=== PATIENT | male | born 1970 | race Caucasian/White ===

== ENCOUNTER → 2017-06-12 11:31 | Outpatient (CLI) | payer OTHER, SELFPAY ==
[2017-06-12 14:10] LABS: Absolute Lymphocyte Count 1.51 X10^3/ul (0.83-4.51); Absolute Neutrophil Count 7.9 X10^3/uL (2.0-7.7); Basophil# 0.02 X10^3/uL; Basophil% 0.2 % (0-1); Eosinophil# 0.04 X10^3/uL; Eosinophils% 0.4 % (0-5); Hematocrit 45.2 % (40-54); Hemoglobin 15.1 g/dl (13.0-16.5); Lymphocyte # 1.51 X10^3/ul (4.0); Lymphocyte % 14.4 % (19-41); Mean Corp Hgb Conc 33.4 g/gl (32-36); Mean Corpuscular Hgb 29.3 pg (27.0-32.0); Mean Corpuscular Volume 87.8 fL (80-94); Mean Platelet Vol. 10.4 fl (6.2-12.0); Monocyte# 0.97 X10^3/uL; Monocyte% 9.3 % (0-10); Neutrophil % 75.5 % (47-70); Platelet Count 179 K/mm3 (150-450); RBC Distribution Width CV 12.7 % (11.6-14.6); RBC Distribution Width SD 40.5 fl (35.1-43.9); Red Blood Count 5.15 M/mm3 (4.6-6.2); White Blood Count 10.5 K/mm3 (4.4-11.0)
[2017-06-12 14:11] LABS: POSITIVE COUNT NO; POSITIVE DIFFERENTIAL NO; POSITIVE MORPHOLOGY NO
[2017-06-12 14:30] LABS: BUN 15 mg/dL (7-18); Creatinine, Serum 0.99 mg/dL (0.70-1.30); Glucose 89 mg/dL (74-106)
[2017-06-12 14:31] LABS: ALB/GLOB Ratio 1.2 RATIO (0.9-2.4); AST(SGOT) 13 U/L (15-37); Alanine Aminotransfer ALT/SGPT 29 U/L (16-61); Alkaline Phosphatase 57 U/L (45-117); Anion Gap 7 (5-15); BUN/Creat Ratio 15.2 RATIO (10-20); Calcium,Total 8.8 mg/dL (8.5-10.1); Chloride 101 mmol/L (98-107); EST Glomerular Filtration Rate 86 mL/min (>60); Est Glom Filt Rate - Afr Amer 104 mL/min (>60); Globulin 3.4 g/dL (2.2-4.2); Potassium 4.2 mmol/L (3.5-5.1); Protein, Total 7.4 g/dL (6.4-8.2); Sodium Level 137 mmol/L (136-145)
== END ==
PROVIDERS: Family Provider Family Medicine; PCP Family Medicine; Visit Provider Family Medicine
DX: K57.92 Diverticulitis of intestine, part unspecified, without perforation or abscess without bleeding (principal)
CPT/HCPCS: 36415; 80053; 85025; 86140

== ENCOUNTER 2018-07-30 20:14 | Emergency (ER) | payer OTHER, SELFPAY ==
[2018-07-22 16:08] VITALS: BMI 30.7
[2018-07-30 20:15] VITALS: BP 148/91; PULSE 84; RESP 16; TEMP 36.6; O2SAT 97; BMI 29.8
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
[2018-07-30] MEDS: Ibuprofen 600 MG Tablet PO (22:13)
[2018-07-30 22:35] VITALS: BP 136/86; PULSE 81; RESP 16; O2SAT 98
== END 2018-07-30 22:35 | disposition home or self-care (01) ==
LOC: ED 22:21
PROVIDERS: Emergency Provider Emergency Medicine; Family Provider Family Medicine; PCP Family Medicine
DX: S20.211A Contusion of right front wall of thorax, initial encounter (principal); V89.2XXA Person injured in unspecified motor-vehicle accident, traffic, initial encounter; Y93.9 Activity, unspecified; Y92.9 Unspecified place or not applicable; I48.0 Paroxysmal atrial fibrillation; Z79.82 Long term (current) use of aspirin
CPT/HCPCS: 71101; 99282

== ENCOUNTER 2018-12-15 22:33 | Emergency (ER) | payer OTHER, SELFPAY ==
[2018-12-15 22:33] VITALS: BP 141/104; PULSE 142; PULSE 150; RESP 13; RESP 23; TEMP 36.3; O2SAT 98; O2SAT 99; BMI 31.4
--- NOTE | 2018-12-15 22:36 | ED.RN ---
CALLED FOR EKG PER RN REQUEST, PULLED OLD EKGS FOR
--- NOTE | 2018-12-15 22:50 | RAD_ITS ---
STUDY: X-RAY CHEST REASON FOR EXAM: Male, 48 years old. Palpitations. TECHNIQUE: Portable chest. COMPARISON: 01/15/2017. FINDINGS: The lungs are clear and expanded. There is no demonstrated pleural abnormality. Normal size heart. Normal mediastinum and annette. Normal visualized pulmonary arteries. Normal visualized aortic arch and descending thoracic aorta. Normal visualized thoracic spine. Normal visualized ribs, clavicles, and shoulders. There is no demonstrated abnormality of the visualized soft tissue structures of the upper abdomen. RAD/Chest 1 View (Portable) IMPRESSION: Normal x-ray examination of the chest. Electronically Signed: Sindi Aldridge MD at 23:42 EDT Tel , Service support ,
--- NOTE | 2018-12-15 22:51 | EKG12_ITS ---
Test Reason : Blood Pressure : / mmHG Vent. Rate : 150 BPM Atrial Rate : 156 BPM P-R Int : 000 ms QRS Dur : 090 ms QT Int : 306 ms P-R-T Axes : 000 041 113 degrees QTc Int : 483 ms Atrial fibrillation with rapid ventricular response with premature ventricular or aberrantly conducte d complexes Nonspecific ST and T wave abnormality Abnormal ECG Confirmed by ORI COHEN ([id number]), food expeditor GIANCARLO ROSE ([id number] on 12/21/2018 2:10:59 PM Referred By: YIMI Confirmed By:ORI COHEN
--- NOTE | 2018-12-15 22:53 | ED.DCSUM_ITS ---
History of Present Illness Chief Complaint: Palpitations Informant: Patient Onset: Today Context: Sudden Onset Timing: Continuous Narrative: Patient is a 48-year-old male with history of proximal atrial fibrillation pres enting with palpitations. Patient states he was seen on the couch when he suddenly felt a fluttering sensation in his chest. He states he sometimes gets it but will resolve spontaneously. Today it persisted so he came to the emergency room. Patient denies associated chest pain or shortness of breath. He states yesterday he was feeling under the weather like it might be coming down with something. He states he was having some diarrhea and myalgias. Patient is on metoprolol for rate control as well as aspirin. He is not on any anticoagulation. Denies any other complaints at this time the leg swelling, fever or chills. 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 Past Medical History - Allergies and Home Meds Allergies/Adverse Reactions: Allergies amoxicillin Adverse Reaction (Verified 12/15/18 22:36) Diarrhea Primary Care Physician: Umair Jensen MD [Primary Care Provider] - Past Medical History: - - Atrial fibrillation Surgical History: appendectomy, - - shoulder surgery, tonsillectemy, Smoking Status: Never smoker - Family History Maternal Family History: Family History (Last Updated 07/22/18 @ 16:19 by Miley Christian) Father Hypertension Bladder cancer Cancer Mother Heart disease Diabetes Family History: Reports: Heart Disease Paternal Family History: Family History (Last Updated 07/22/18 @ 16:19 by Miley Christian) Father Hypertension Bladder cancer Cancer Mother Heart disease Diabetes Family History: Reports: Hypertension Review of Systems All systems negative except as indicated Cardiovascular: Reports: Palpitations Physical Exam Vital Signs/Narrative: Vital Signs Temp Pulse Resp BP Pulse Ox 12/15/18 22:33 97.3 F L 142 H 13 141/104 H 98 Inital Vital Signs reviewed: Yes General: Well nourished, Well developed, No Acute Distress Head: Normocephalic, Atraumatic Eyes: Perrl, EOMI ENT: Moist mucous membranes, No rhinorrhea Neck: Supple, Nontender Cardiovascular: No murmurs, Irregular, Tachycardia Respiratory: No distress, CTA bilaterally, Chest nontender Abdomen: Soft, Nontender, Nondistended, Normal bowel sounds Back: Nontender, Normal Inspection Extremities: Nontender, No edema Skin: Normal color, No rash Neurological: Alert, Oriented x3, Cranial nerves II-XII grossly intact, Normal Strength, Normal Sensation Psychological: Normal affect, Normal Mood Diagnostic/Tx/Re-eval Chest X-Ray - ED: 1 View, Read by ED Physician, Read by Radiologist, No Acute Disease Clinical Impression(s) from Imaging Studies Chest X-Ray 12/15/18 22:50 IMPRESSION: Normal x-ray examination of the chest. Electronically Signed: Sindi Aldridge MD at 23:42 EDT Tel , Service support , Laboratory Data 12/15/18 12/15/18 22:40 22:40 WBC 5.8 RBC 5.40 Hgb 15.5 Hct 47.9 MCV 88.7 MCH 28.7 MCHC 32.4 RDW Std Deviation 39.2 RDW Coeff of Felicity 12.1 Plt Count 170 MPV 9.6 Immature Gran % (Auto) 0.200 Neut % (Auto) 48.7 Lymph % (Auto) 38.4 Grimes % (Auto) 10.0 Eos % (Auto) 2.2 Baso % (Auto) 0.5 Absolute Neuts (auto) 2.8 Absolute Lymphs (auto) 2.23 Nucleated RBC % 0 Sodium 139 Potassium 3.9 Chloride 104 Carbon Dioxide 30.0 Anion Gap 5 BUN 11 Creatinine 1.03 Estim Creat Clear Calc 94.17 Est GFR (MDRD) Af Amer 98 Est GFR (MDRD) Non-Af 81 BUN/Creatinine Ratio 10.7 Glucose 96 Calcium 8.6 Magnesium 2.1 Troponin I < 0.015 Diagnostic Data Chest X-Ray 12/15/18 22:50 IMPRESSION: Normal x-ray examination of the chest. Electronically Signed: Sindi Aldridge MD at 23:42 EDT Tel , Service support , - Rhythm Strip Rhythm Strip: A-fib - with RVR Rate: 143 Ectopy: PVC(s) - EKG Initial EKG Interpretation: Atrial Fibrillation, - - Fibrillation with RVR at a rate of 150 An run beat of V. tach is present versus aberrant conduction Normal ST segments Normal QRS and QT/QTc Normal axis Compared to prior EKG on 01/15/2017 patient also was in atrial fibrillation with RVR however aberrant conduction versus PVCs are not present Follow-up EKG Interpretation: Sinus Rhythm, - - Sinus bradycardia at a rate of [address] segments Resolution of atrial fibrillation compared to prior EKG - Medical Decision Making Evaluated for palpitations. He is found to be in atrial for ablation with RVR. He is having frequent runs of V. tach but it is not sustained. Patient is initially given 3 doses of 5 mg of metoprolol IV with no improvement of his rate. His blood pressure remained stable. He is given IV fluid bolus. He is then started on a bolus of diltiazem. Patient then spontaneously converted to sinus bradycardia. He has improvement of his symptoms. Patient's chest x-ray, troponin, electrolytes and other lab work is unremarkable. Patient is counseled on signs and symptoms requiring return to the emergency room. Patient verbalizes agreement and understand this plan. Patient discharged home in stable and improved condition. 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 We are not making any medication changes at this time. Return to the emergency room if your symptoms return or change.
[2018-12-15 23:00] VITALS: BP 148/98; PULSE 151
[2018-12-15 23:01] LABS: Absolute Lymphocyte Count 2.23 X10^3/uL (0.83-4.51); Absolute Neutrophil Count 2.8 X10^3/uL (2.0-7.7); Basophil# 0.03 X10^3/uL; Basophil% 0.5 % (0-1); Eosinophil# 0.13 X10^3/uL; Eosinophils% 2.2 % (0-5); Hematocrit 47.9 % (40-54); Hemoglobin 15.5 g/dL (13.0-16.5); Lymphocyte # 2.23 X10^3/ul (4.0); Lymphocyte % 38.4 % (19-41); Mean Corp Hgb Conc 32.4 g/dL (32-36); Mean Corpuscular Hgb 28.7 pg (27.0-32.0); Mean Corpuscular Volume 88.7 fL (80-94); Mean Platelet Vol. 9.6 fl (6.2-12.0); Monocyte# 0.58 X10^3/uL; NRBC Flagged by Analyzer 0 % (0-5); Neutrophil # 2.82 X10^3/uL (2.7-7.7); Neutrophil % 48.7 % (47-70); Platelet Count 170 K/mm3 (150-450); RBC Distribution Width CV 12.1 % (11.6-14.6); RBC Distribution Width SD 39.2 fl (35.1-43.9); White Blood Count 5.8 K/mm3 (4.4-11.0)
[2018-12-15] MEDS: Metoprolol Tartrate 5 MG/5 ML Vial IV ×3 (23:02→23:12)
[2018-12-15] MEDS: 0.9% Normal Saline 1,000 ML 1000 ML IV (23:04)
[2018-12-15 23:07] VITALS: BP 148/119; PULSE 142
[2018-12-15 23:12] VITALS: BP 153/106; PULSE 139
[2018-12-15 23:14] LABS: Anion Gap 5 (5-15); BUN 11 mg/dL (7-18); BUN/Creat Ratio 10.7 RATIO (10-20); Calcium,Total 8.6 mg/dL (8.5-10.1); Chloride 104 mmol/L (98-107); Creatinine, Serum 1.03 mg/dL (0.70-1.30); EST Glomerular Filtration Rate 81 mL/min (>60); Est Glom Filt Rate - Afr Amer 98 mL/min (>60); Estimated Creatinine Clearance 94.17 ml/min; Glucose 96 mg/dL (74-106); Magnesium 2.1 mg/dL (1.6-2.6); Potassium 3.9 mmol/L (3.5-5.1); Sodium Level 139 mmol/L (136-145)
[2018-12-16 00:09] VITALS: BP 109/78; PULSE 147; RESP 146; O2SAT 95
[2018-12-16] MEDS: dilTIAZem 25 MG/5 ML Vial 15 MG IV BOLUS (00:10)
--- NOTE | 2018-12-16 00:15 | HP.PCM_ITS ---
History of Present Illness Date of Admission: 12/16/18 Chief Complaint: Palpitations The patient is a 48 y/o F w/ PMHx: PAF, GERD, Hx Sinus Bradycardia who presents to the [facility] ED on 12/16/18 with history of Work-up in the ED included T 97.3, heart rate 150, BP 141/104, respiratory rate 23, 99% on room air, remarkable CBC, unremarkable BMP, troponin less than 0.015, magnesium 2.1, chest x-ray with no acute cardiopulmonary findings. In the ED patient administered normal saline, metoprolol IV regimen, Cardizem bolus 50 mg IV x1 and eventually transition to a Cardizem drip. Past Medical History Past Medical History (Chronic Problems): Chronic Problems (Last Updated 07/22/18 @ 16:18 by Miley Christian) Sinus bradycardia (Chronic) Paroxysmal atrial fibrillation (Chronic) GERD (gastroesophageal reflux disease) (Chronic) Medical History: Medical History (Last Updated 07/22/18 @ 16:18 by Miley Christian) Sinus bradycardia (Chronic) R00.1 Paroxysmal atrial fibrillation (Chronic) I48.0 GERD (gastroesophageal reflux disease) (Chronic) K21.9 Allergies amoxicillin Adverse Reaction (Verified 12/15/18 22:36) Diarrhea Home Medications: Ambulatory Orders Medication Instructions Recorded Aspirin 325 mg PO DAILY@0800 #30 tab 01/16/17 famotidine 40 mg tablet 40 mg PO QDAY tab 05/01/17 metoprolol tartrate 25 mg tablet 12.5 mg PO BID #90 tab 05/14/18 Surgical History: Surgical History (Last Updated 07/22/18 @ 16:18 by Miley Christian) History of shoulder surgery Z98.890 Right shoulder lymphatic cyst excision History of tonsillectomy Z90.89 Hx of appendectomy Z90.49 Surgical History: appendectomy, - - Shoulder surgery, T+A, Appendectomy. Psychiatric History: No pertinent psych hx Smoking Status: Never smoker Tobacco Use: Non-smoker Alcohol: Occasional Drugs: None - *Family History Maternal Family History: Family History (Last Updated 07/22/18 @ 16:19 by Miley Christian) Father Hypertension Bladder cancer Cancer Mother Heart disease Diabetes History Items: Heart Disease Paternal Family History: Family History (Last Updated 07/22/18 @ 16:19 by Miley Christian) Father Hypertension Bladder cancer Cancer Mother Heart disease Diabetes History Items: Hypertension Patient Problems: Active and Suspected Problems (Last Updated 07/22/18 @ 16:18 by Miley Christian) Atrial fibrillation with rapid ventricular response (Acute) - Physical Exam Vital Signs Temp Pulse Resp BP Pulse Ox 97.3 F L 147 H 146 H 153/106 H 95 12/15/18 22:33 12/16/18 00:09 12/16/18 00:09 12/15/18 23:12 12/16/18 00:09 Oxygen Delivery Method Room Air Weight: 231 lb 4.238 oz Body Mass Index (BMI) 31.4 Intake and Output for Last 24 Hours 12/14/18 12/15/18 12/16/18 23:59 23:59 23:59 Intake Total 1000 / 1000 Balance 1000 / 1000 Laboratory Tests Past 24 Hrs 12/15/18 12/15/18 22:40 22:40 WBC 5.8 RBC 5.40 Hgb 15.5 Hct 47.9 MCV 88.7 MCH 28.7 MCHC 32.4 RDW Std Deviation 39.2 RDW Coeff of Felicity 12.1 Plt Count 170 MPV 9.6 Immature Gran % (Auto) 0.200 Neut % (Auto) 48.7 Lymph % (Auto) 38.4 Payne % (Auto) 10.0 Eos % (Auto) 2.2 Baso % (Auto) 0.5 Absolute Neuts (auto) 2.8 Absolute Lymphs (auto) 2.23 Nucleated RBC % 0 Sodium 139 Potassium 3.9 Chloride 104 Carbon Dioxide 30.0 Anion Gap 5 BUN 11 Creatinine 1.03 Estim Creat Clear Calc 94.17 Est GFR (MDRD) Af Amer 98 Est GFR (MDRD) Non-Af 81 BUN/Creatinine Ratio 10.7 Glucose 96 Calcium 8.6 Magnesium 2.1 Troponin I < 0.015 Assessment/Plan All Active Problems (Last Updated 07/22/18 @ 16:18 by Miley Christian) Atrial fibrillation with rapid ventricular response (Acute)
--- NOTE | 2018-12-16 00:23 | EKG12_ITS ---
Test Reason : REPEAT Blood Pressure : / mmHG Vent. Rate : 056 BPM Atrial Rate : 056 BPM P-R Int : 160 ms QRS Dur : 090 ms QT Int : 388 ms P-R-T Axes : 054 041 044 degrees QTc Int : 374 ms Sinus bradycardia Otherwise normal ECG Confirmed by ORI COHEN ([id number]), health editor GIANCARLO ROSE ([id number]) on 12/21/2018 2:11:22 PM Referred By: IAN Confirmed By:ORI COHEN
[2018-12-16 00:34] VITALS: BP 113/79; PULSE 58; RESP 16; O2SAT 98
[2018-12-16 00:53] VITALS: BP 109/77; PULSE 55; RESP 16; O2SAT 96
[2018-12-16 01:02] VITALS: BP 105/70; PULSE 58; RESP 16; O2SAT 98
[2018-12-16 01:08] LABS: Amphetamine Urine VISTA NEGATIVE (<1000 ng/mL); Barbiturate Urine VISTA NEGATIVE (< 200 ng/mL); Benzodiazepine Urine VISTA NEGATIVE (< 200 ng/mL); Cocaine Urine VISTA NEGATIVE (< 300 ng/mL); Ecstacy Urine VISTA NEGATIVE (< 500 ng/mL); Methadone Urine VISTA NEGATIVE (< 300 ng/mL); PCP Urine VISTA NEGATIVE (< 25 ng/mL); THC Urine VISTA NEGATIVE (< 50 ng/mL); Vista UDS pH Range 5
[2018-12-16 01:18] VITALS: BP 116/82; PULSE 64; RESP 15; O2SAT 98
[2018-12-16 01:30] VITALS: BP 116/82; PULSE 59; RESP 14; O2SAT 95
== END 2018-12-16 01:31 | disposition home or self-care (01) ==
LOC: ED 23:08
PROVIDERS: Emergency Provider Emergency Medicine; Family Provider Family Medicine; PCP Family Medicine
DX: I48.91 Unspecified atrial fibrillation (principal)
CPT/HCPCS: 71045; 80048; 80307; 83735; 84484; 85025; 93005; 96361; 96374; 99284; J7030; A4216

== ENCOUNTER 2019-04-13 08:04 | Emergency (ER) | payer OTHER, SELFPAY ==
[2019-01-14 09:48] VITALS: BMI 30.4
[2019-04-13 08:04] VITALS: BP 157/84; PULSE 63; RESP 13; TEMP 36.9; O2SAT 97; BMI 30.9
--- NOTE | 2019-04-13 08:18 | ED.DCSUM_ITS ---
History of Present Illness Chief Complaint: Chest Pain Informant: Patient Onset: Today Narrative: Patient presents the emergency department for evaluation of chest pain. Patient has a history of paroxysmal atrial fibrillation is maintained on full-strength aspirin and diltiazem. He had a stress test in 2017 that was negative. 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 He states that yesterday he was in his normal state of health. He woke around 0430 hours with an intense midsternal chest pain. Nonradiating and no associated symptoms. He states he drank some water and took some Tums and laid back down. Around 6 he woke and it was better but he had an uncomfortable feeling more on the left side of his chest. He states he has had indigestion in the past and is typically felt in his upper abdomen. He states this felt different than that type of indigestion. Since arriving in the department he feels substantially better. Past Medical History - Allergies and Home Meds Allergies/Adverse Reactions: Allergies amoxicillin Adverse Reaction (Verified 04/13/19 08:10) Diarrhea Primary Care Physician: Umair Jensen MD [Primary Care Provider] - Surgical History: appendectomy, - - shoulder surgery, tonsillectemy, Smoking Status: Never smoker - Family History Maternal Family History: Family History (Last Reviewed 01/14/19 @ 14:43 by ROSALIND Hernandez) Father Hypertension Bladder cancer Cancer Mother Heart disease Diabetes Family History: Reports: Heart Disease Paternal Family History: Family History (Last Reviewed 01/14/19 @ 14:43 by ROSALIND Hernandez) Father Hypertension Bladder cancer Cancer Mother Heart disease Diabetes Family History: Reports: Hypertension Review of Systems General: Denies: Chills, Fever, Sweats Eyes: Denies: Visual changes - bilaterally, Diplopia ENT: Denies: Rhinorrhea, Sore throat Cardiovascular: Reports: Chest pain. Denies: Palpitations Respiratory: Denies: Dyspnea, Cough, Dyspnea on exertion Gastrointestinal: Denies: Abdominal pain, Nausea, Vomiting, Diarrhea, Melena, Hematochezia Genitourinary: Denies: Dysuria, Hematuria, Frequency Musculoskeletal: Denies: Back pain, Extremity Pain Skin: Denies: Rash, Wounds Neurological: Denies: Headache, Weakness, Numbness Physical Exam Vital Signs/Narrative: Vital Signs Temp Pulse Resp BP Pulse Ox 04/13/19 08:04 98.5 F 63 13 157/84 H 97 Inital Vital Signs reviewed: Yes General: Well nourished, Well developed, No Acute Distress Head: Normocephalic, Atraumatic Eyes: Perrl, EOMI ENT: Moist mucous membranes, No rhinorrhea Neck: Supple, Nontender Cardiovascular: Regular rate, Regular rhythm, No murmurs Respiratory: No distress, CTA bilaterally, Chest nontender Abdomen: Soft, Nontender, Nondistended, Normal bowel sounds Back: Nontender, Normal Inspection Extremities: Nontender, No edema Skin: Normal color, No rash Neurological: Alert, Oriented x3, Cranial nerves II-XII grossly intact, Normal Strength, Normal Sensation Psychological: Normal affect, Normal Mood Diagnostic/Tx/Re-eval - Rhythm Strip Rhythm Strip: Sinus Rhythm Rate: 62 - Medical Decision Making CBC BMP and d-dimer were negative. Chest x-ray shows a normal mediastinal silhouette. EKG shows no concerning features for ischemia. Initial heart enzymes are negative. Patient's heart score is 2. Therefore a be set of heart enzymes will be ordered. BP still active heart enzymes was also negative. Patient will be discharged home to follow-up with Dr. garcía if worsening or concerns ED Disposition - Plan for ED Patient: Disposition: Home or Assisted Living Diagnosis: Chest pain Instructions: CHEST PAIN, Uncertain Cause Referrals: Umair Jensen MD [Primary Care Provider] - As soon as possible
--- NOTE | 2019-04-13 08:33 | EKG12_ITS ---
Test Reason : Blood Pressure : / mmHG Vent. Rate : 062 BPM Atrial Rate : 062 BPM P-R Int : 142 ms QRS Dur : 096 ms QT Int : 398 ms P-R-T Axes : 053 050 044 degrees QTc Int : 403 ms Normal sinus rhythm Normal ECG Confirmed by ORI COHEN ([id number]), deputy editor in chief GIANCARLO ROSE ([id number]) on 04/15/2019 11:11:27 AM Referred By: GENNA Confirmed By:ORI COHEN
--- NOTE | 2019-04-13 08:33 | RAD_ITS ---
STUDY: X-RAY CHEST REASON FOR EXAM: Male, 48 years old. CHEST PAIN STARTED THIS MORNING TECHNIQUE: Single AP portable view of the chest. COMPARISON: Comparison is made with prior examination dated December 15, 2018. FINDINGS: EKG electrodes are seen. The lungs are clear and expanded. There is no demonstrated pleural abnormality. Normal size heart. Normal mediastinum and annette. Normal visualized pulmonary arteries. Normal visualized aortic arch and descending thoracic aorta. Normal visualized thoracic spine. Normal visualized ribs, clavicles, and shoulders. There is no demonstrated abnormality of the visualized soft tissue structures of the upper abdomen. RAD/Chest 1 View (Portable) IMPRESSION: Normal x-ray examination of the chest. Electronically Signed: Rubén Hoyos, at 8:50 EST , Service support ,
[2019-04-13 08:58] LABS: Absolute Lymphocyte Count 1.37 X10^3/uL (0.83-4.51); Absolute Neutrophil Count 2.7 X10^3/uL (2.0-7.7); Basophil# 0.03 X10^3/uL; Basophil% 0.7 % (0-1); Eosinophil# 0.12 X10^3/uL; Eosinophils% 2.6 % (0-5); Hematocrit 47.9 % (40-54); Hemoglobin 15.5 g/dL (13.0-16.5); Lymphocyte # 1.37 X10^3/ul (4.0); Lymphocyte % 29.8 % (19-41); Mean Corp Hgb Conc 32.4 g/dL (32-36); Mean Corpuscular Hgb 28.1 pg (27.0-32.0); Mean Corpuscular Volume 86.9 fL (80-94); Mean Platelet Vol. 9.7 fl (6.2-12.0); Monocyte# 0.39 X10^3/uL; Monocyte% 8.5 % (0-10); NRBC Flagged by Analyzer 0 % (0-5); Neutrophil # 2.68 X10^3/uL (2.7-7.7); Neutrophil % 58.4 % (47-70); Platelet Count 159 K/mm3 (150-450); RBC Distribution Width CV 12.3 % (11.6-14.6); RBC Distribution Width SD 38.8 fl (35.1-43.9); Red Blood Count 5.51 M/mm3 (4.6-6.2); White Blood Count 4.6 K/mm3 (4.4-11.0)
[2019-04-13 09:14] LABS: Anion Gap 5 (5-15); BUN 14 mg/dL (7-18); BUN/Creat Ratio 14.1 RATIO (10-20); Calcium,Total 8.6 mg/dL (8.5-10.1); Chloride 106 mmol/L (98-107); Creatinine, Serum 0.99 mg/dL (0.70-1.30); EST Glomerular Filtration Rate 85 mL/min (>60); Est Glom Filt Rate - Afr Amer 102 mL/min (>60); Estimated Creatinine Clearance 97.98 ml/min; Glucose 100 mg/dL (74-106); Magnesium 2.4 mg/dL (1.6-2.6); Sodium Level 140 mmol/L (136-145)
[2019-04-13 09:15] LABS: D-Dimer Quantitative (DVT/PE) < 0.27 FEU/ug/m (0.27-0.49)
[2019-04-13 09:36] VITALS: BP 139/91; PULSE 60; RESP 18; O2SAT 100
[2019-04-13 11:00] VITALS: BP 139/91; PULSE 58; RESP 16; O2SAT 100
[2019-04-13 12:00] VITALS: PULSE 58; RESP 14; O2SAT 97
[2019-04-13 12:49] VITALS: BP 145/86; PULSE 59; RESP 18; O2SAT 98
--- NOTE | 2019-04-13 12:49 | ED.RN ---
REVIEWED D/C INSTRUCTIONS, FOLLOW UP CARE, AND S/S THAT WOULD WARRANT A RETURN TO THE ED WITH PT. PT VERBALIZED AN UNDERSTANDING AND DENIES FURTHER QUESTIONS FOR THIS RN. PT SKIN P/W/D, RESP EVEN AND UNLABORED, PT A&O X 3, NO DISTRESS NOTED. PT AMBULATED OUT OF ED, GAIT STEADY.
== END 2019-04-13 12:50 | disposition home or self-care (01) ==
PROVIDERS: Emergency Provider Emergency Medicine; Family Provider Family Medicine; PCP Family Medicine
DX: R07.2 Precordial pain (principal); I48.0 Paroxysmal atrial fibrillation; Z79.899 Other long term (current) drug therapy; Z88.0 Allergy status to penicillin
CPT/HCPCS: 71045; 80048; 83735; 84484; 85025; 85379; 93005; 99284; A4216

== ENCOUNTER 2021-05-03 08:16 | Outpatient (CLI) | payer OTHER, SELFPAY ==
[2021-05-03 10:12] LABS: Hematocrit 45.5 % (40-54); Hemoglobin 15.1 g/dL (13.0-16.5)
[2021-05-03 10:53] LABS: Anion Gap 6 (5-15); BUN 16 mg/dL (7-18); BUN/Creat Ratio 17.1 RATIO (10-20); Calcium,Total 8.7 mg/dL (8.5-10.1); Chloride 103 mmol/L (98-107); Cholesterol 197 mg/dL (200); Creatinine, Serum 0.94 mg/dL (0.70-1.30); EST Glomerular Filtration Rate 90 mL/min (>60); Est Glom Filt Rate - Afr Amer 109 mL/min (>60); Glucose 89 mg/dL (74-106); High Density Lipoprotein 65 mg/dL; PSA,Total - Annual Screen 0.29 ng/mL (0.00-4.00); Sodium Level 135 mmol/L (136-145); Triglycerides 99 mg/dL; Very Low Density Lipoprotein 20 mg/dL (5-40)
== END 2021-05-03 23:59 | disposition short-term general hospital (02) ==
LOC: MFPLAB 08:21
PROVIDERS: PCP Family Medicine; Referring Provider Family Medicine; Visit Provider Family Medicine
DX: Z00.00 Encounter for general adult medical examination without abnormal findings (principal); I48.0 Paroxysmal atrial fibrillation; Z12.5 Encounter for screening for malignant neoplasm of prostate
CPT/HCPCS: 36415; 80048; 80061; 84153; 85014; 85018; G0103

== ENCOUNTER 2021-05-21 10:36 | Outpatient (CLI) | payer OTHER, SELFPAY | END 2021-05-21 23:59 | disposition home or self-care (01) | LOC: LABSPEC 05-22 10:47 | PROVIDERS: PCP Family Medicine; Referring Provider Family Medicine; Visit Provider Family Medicine | DX: R09.89 Other specified symptoms and signs involving the circulatory and respiratory systems (principal) | CPT/HCPCS: 87635; U0003; U0005 ==

== ENCOUNTER → 2022-07-09 | Outpatient (CLI) | payer OTHER, SELFPAY ==
[2022-07-09 10:00] LABS: Absolute Neutrophil Count 2.6 X10^3/uL (2.0-7.7); Basophil# 0.03 X10^3/uL; Basophil% 0.7 % (0-1); Eosinophil# 0.11 X10^3/uL; Eosinophils% 2.4 % (0-5); Hematocrit 47.1 % (40-54); Hemoglobin 15.2 g/dL (13.0-16.5); Mean Corp Hgb Conc 32.3 g/dL (32-36); Mean Corpuscular Hgb 28.6 pg (27.0-32.0); Mean Corpuscular Volume 88.5 fL (80-94); Mean Platelet Vol. 9.9 fl (6.2-12.0); Monocyte# 0.36 X10^3/uL; NRBC Flagged by Analyzer 0 % (0-5); Neutrophil # 2.61 X10^3/uL (2.7-7.7); Neutrophil % 57.7 % (47-70); Platelet Count 200 K/mm3 (150-450); RBC Distribution Width CV 12.6 % (11.6-14.6); RBC Distribution Width SD 40.7 fl (35.1-43.9); Red Blood Count 5.32 M/mm3 (4.6-6.2); White Blood Count 4.5 K/mm3 (4.4-11.0)
[2022-07-09 10:27] LABS: ALB/GLOB Ratio 1.2 RATIO (0.9-2.4); AST(SGOT) 18 U/L (15-37); Alanine Aminotransfer ALT/SGPT 34 U/L (16-61); Albumin, Serum 3.7 g/dL (3.2-5.0); Alkaline Phosphatase 63 U/L (45-117); Anion Gap 3 (5-15); BUN 15 mg/dL (7-18); BUN/Creat Ratio 15.4 RATIO (10-20); Chloride 106 mmol/L (98-107); Cholesterol 177 mg/dL (200); Creatinine, Serum 0.97 mg/dL (0.70-1.30); EST Glomerular Filtration Rate 86 mL/min (>60); Est Glom Filt Rate - Afr Amer 104 mL/min (>60); Glucose 103 mg/dL (74-106); High Density Lipoprotein 64 mg/dL; Potassium 4.1 mmol/L (3.5-5.1); Protein, Total 6.7 g/dL (6.4-8.2); Sodium Level 139 mmol/L (136-145); Thyroid Stim Hormone (TSH) 1.45 uIU/mL (0.358-3.74); Triglycerides 101 mg/dL; Very Low Density Lipoprotein 20 mg/dL (5-40)
== END | disposition home or self-care (01) ==
LOC: MFPLAB 08:13
PROVIDERS: PCP Family Medicine; Referring Provider Family Medicine; Visit Provider Family Medicine
DX: Z00.00 Encounter for general adult medical examination without abnormal findings (principal)
CPT/HCPCS: 36415; 80053; 80061; 84443; 85025

== ENCOUNTER → 2023-05-27 | Outpatient (CLI) | payer OTHER, SELFPAY ==
[2023-05-27 18:03] LABS: Absolute Lymphocyte Count 1.71 X10^3/uL (0.83-4.51); Basophil# 0.04 X10^3/uL; Basophil% 0.7 % (0-1); Eosinophil# 0.13 X10^3/uL; Eosinophils% 2.4 % (0-5); Hematocrit 46.9 % (40-54); Hemoglobin 15.2 g/dL (13.0-16.5); Lymphocyte # 1.71 X10^3/ul (0.83-4.51); Lymphocyte % 31.7 % (19-41); Mean Corp Hgb Conc 32.4 g/dL (32-36); Mean Corpuscular Hgb 28.2 pg (27.0-32.0); Mean Platelet Vol. 10.3 fl (6.2-12.0); Monocyte% 9.3 % (0-10); NRBC Flagged by Analyzer 0 % (0-5); Neutrophil # 3.01 X10^3/uL (2.7-7.7); Neutrophil % 55.7 % (47-70); Platelet Count 196 K/mm3 (150-450); RBC Distribution Width CV 12.6 % (11.6-14.6); RBC Distribution Width SD 39.8 fl (35.1-43.9); Red Blood Count 5.39 M/mm3 (4.6-6.2); White Blood Count 5.4 K/mm3 (4.4-11.0)
[2023-05-27 18:29] LABS: ALB/GLOB Ratio 1.2 RATIO (0.9-2.4); AST(SGOT) 18 U/L (15-37); Alanine Aminotransfer ALT/SGPT 33 U/L (16-61); Albumin, Serum 3.9 g/dL (3.2-5.0); Alkaline Phosphatase 63 U/L (45-117); Anion Gap 8 (5-15); BUN 16 mg/dL (7-18); BUN/Creat Ratio 14.2 RATIO (10-20); Calcium,Total 8.7 mg/dL (8.5-10.1); Chloride 107 mmol/L (98-107); Creatinine, Serum 1.13 mg/dL (0.70-1.30); EST Glomerular Filtration Rate 72 mL/min (>60); Est Glom Filt Rate - Afr Amer 87 mL/min (>60); Globulin 3.2 g/dL (2.2-4.2); Glucose 89 mg/dL (74-106); Potassium 3.9 mmol/L (3.5-5.1); Protein, Total 7.1 g/dL (6.4-8.2); Sodium Level 141 mmol/L (136-145)
--- OUTSIDE RECORDS SUMMARY | 2023-05-27 20:20 | XMS RPT_ITS | CCD ---
Author Name Unknown Address [address] [facility] [address] [place] [id number] Organization [facility] Care Team Providers Care Pulp And Paper Tester Name Role Phone ISRALE SAEZ Attending Unavailable LEONEL JENSEN Primary Care Unavailable VIANNEY NAVARRO Referring Unavailable LEONEL JENSEN Referring Unavailable LEONEL JENSEN Primary Care Unavailable VIANNEY NAVARRO Attending Unavailable Leonel Jensen MD Primary Care Provider Allergies Allergy Classification Reported Allergen(s) Allergy Type Date of Onset Reaction(s) Facility (2 sources) Amoxicillin; Translations: [AMOXICILLIN] Drug Allergy 01-29-2005 Diarrhea [facility] Repository Medications Completed/Discontinued Medications Medication Drug Class(es) Dates Sig (Normalized) Sig (Original) aspirin 325 mg delayed release oral tablet (1 source) Platelet Aggregation Inhibitor, Nonsteroidal Anti-inflammatory Drug take 1 tablet by mouth once daily aspirin, enteric coated (ASPIRIN, ENTERIC COATED) 325 mg EC tablet Take 325 mg by mouth once daily. 0 Active Problems Active Problems Problem Classification Problem Date Documented Date Episodic/Chronic Esophageal disorders (1 source) Gastroesophageal reflux disease; Translations: [Gastro-esophageal reflux disease without esophagitis] Onset: 05-30-2005 08-23-2008 Chronic Other screening for suspected conditions (not mental disorders or infectious disease) (4 sources) Encounter for screening for malignant neoplasm of colon; Translations: [Patient encounter status] Onset: 03-12-2022 03-11-2022 Episodic Residual codes; unclassified (2 sources) Family history of diabetes mellitus; Translations: [Family history of diabetes mellitus] Onset: 08-23-2008 03-11-2022 Episodic Past or Other Problems Problem Classification Problem Date Documented Date Episodic/Chronic Appendicitis and other appendiceal conditions (1 source) Appendicitis; Translations: [Unspecified appendicitis] Onset: 08-23-2008 08-23-2008 Episodic Other non-traumatic joint disorders (1 source) Shoulder joint pain; Translations: [Pain in unspecified shoulder] Onset: 01-14-2008 08-23-2008 Episodic Residual codes; unclassified (1 source) Family history of diabetes mellitus; Translations: [Family history of diabetes mellitus] Onset: 08-23-2008 Episodic Residual codes; unclassified (1 source) Family history of ischemic heart disease and other diseases of the circulatory system; Translations: [Family history of other cardiovascular diseases] Onset: 08-23-2008 08-23-2008 Episodic Results Test Name Value Interpretation Reference Range Facil ity Vital Signs Date Time Vital Sign Value Performing Clinician Faci lity 03-12-2022 11:06-0500 Diastolic blood pressure 78 mm[Hg] Israel Saez MD Work Phone: [facility] 03-12-2022 11:06-0500 Heart rate 73 /min Israel Saez MD Work Phone: [facility] 03-12-2022 11:06-0500 Respiratory rate 16 /min Israel Saez MD Work Phone: [facility] 03-12-2022 11:06-0500 SaO2% (BldA) [Mass fraction] 100 % Israel Saez MD Work Phone: [facility] 03-12-2022 11:06-0500 Systolic blood pressure 137 mm[Hg] Israel Saez MD Work Phone: [facility] 03-12-2022 09:46-0500 Body temperature 97.7 [degF] Israel Saez MD Work Phone: [facility] Encounters Encounter Date Encounter Type Care Provider Facility Start: 03-12-2022 End: 03-12-2022 ambulatory ISRAEL SAEZ Facility:[facility] Start: 03-12-2022 End: 03-12-2022 Subsequent hospital visit by physician Israel Saez MD Work Phone: Ambulatory Surgery Procedures Date Procedure Procedure Detail Performing Clinician Start: 03-12-2022 Colonoscopy flx dx w /collj spec when pfrmd Vianney Navarro PA-C Work Phone: Start: 03-12-2022 Colonoscopy Israel johnson MD Work Phone: Start: 08-23-2008 Lipid 1996 panel - S mina or Plasma Israel Saez MD Work Phone: Plan of Treatment Date Care Activity Detail Author Start: 03-12-2032 Colonoscopy Colonoscopy [facility] Start: 03-12-2032 Colorectal Cancer Screening Colorectal Cancer Screening [facility] Start: 12-06-2022 Covid-19 Vaccine () Covid-19 Vaccine () [facility] Start: 12-06-2022 Influenza vaccination Influenza Vacc ine (#1) [facility] Start: 04-07-2022 Depression Assessment Depression Ass essment [facility] Start: 04-04-2022 Shingrix Vaccine (2 of 2) Shingrix V accine (2 of 2) [facility] Start: 01-29-2017 Urine microalbumin profile DTa P,Tdap,Td Vaccine (2 - Td or Tdap) [facility] Start: 2013 Cologuard (FIT-DNA) Cologuard (FIT-D NA) [facility] Start: [address] Colonography [facility] Start: 2013 Diabetes Screening Diabetes Screenin g [facility] Start: 2013 Fecal Occult Blood Fecal Occult Bloo d [facility] Start: 2013 Sigmoidoscopy Sigmoidoscopy [facility] Start: 08-23-2013 Lipid 1996 panel - S mina or Plasma Lipid Screening [facility] Start: 1986 Hepatitis [facility] Start: 1986 HIV Screening HIV Screening [facility] Start: 1968 Hepatitis B Vaccine (1 of 3 - 3-dose series) Hepatitis B Vaccine (1 of 3 - 3-dose series) [facility] Immunizations Immunization Date Immunization Notes Care Provider Fa cility 02-07-2022 influenza virus vaccine, unspecified formulation Israel Saez MD Work Phone: [facility] 01-30-2019 influenza, injectabl e, quadrivalent, contains preservative Israel Saez MD Work Phone: [facility] 01-17-2018 influenza, injectabl e, quadrivalent, contains preservative Israel Saez MD Work Phone: [facility] 01-27-2016 influenza, injectabl e, quadrivalent, contains preservative Israel Saez MD Work Phone: [facility] 02-18-2015 influenza, injectabl e, quadrivalent, contains preservative Israel Saez MD Work Phone: [facility] 02-24-2014 influenza, seasonal, injectable Israel Saez MD Work Phone: [facility] 02-20-2013 influenza virus vaccine, unspecified formulation Israel Saez MD Work Phone: [facility] Work Phone: 01-15-2012 influenza virus vaccine, unspecified formulation Israel Saez MD Work Phone: [facility] Work Phone: 01-23-2011 influenza virus vaccine, unspecified formulation Israel Saez MD Work Phone: [facility] 01-29-2007 tetanus toxoid, redu rocky diphtheria toxoid, and acellular pertussis vaccine, adsorbed Israel Saez MD Work Phone: [facility] Work Phone: Payers Date Payer Category Payer Private Health Insurance [id number] 2020 Private Health Insurance [employer] [id number] 2020-Present [phone] [facility] [id number] [place] [address] Open Access [id number] Social History Date Type Detail Facility [facility] Start: 03-12-2022 Alcohol intake Current drinke r of alcohol (finding) [facility] Start: 03-12-2022 History of Social function [facility] Start: 03-12-2022 Tobacco use panel [facility] Start: 08-23-2008 Alcohol Comment occasional/social [facility] Start: 1970 Sex Assigned At Not on file [facility] Nurse Note 03-12-2022 Emmie Yousif RN - 03/12/2022 10:36 AM EST Note Date & Type Note Facility 03-12-2022 Nurse Note Patient arrived laying on left side. States that he is not in any pain at this time. Patient passing gas. Patient's abdomen appears to soft and nondistended at this time. documented in this encounter [facility] History and physical note 03-12-2022 Israel Saez MD - 03/12/2022 9:45 AM ESTIsrael Saez MD - 03/12/2022 9:45 AM EST Note Date & Type Note Facility 03-12-2022 History and physi noah note UPDATED PROCEDURAL SEDATION HISTORY AND PHYSICAL EXAMINATION SERVICE DATE: 03/12/2022 SERVICE TIME: 9:53 AM PHYSICAL EXAM MUST BE COMPLETED ON ADMISSION PROCEDURE: Procedure Indications: The History and Physical (completed in the past 30 days) has been reviewed and the patient has been examined. The contents accurately reflect the patient's condition with the following additions or revisions since the H&P was completed. ASA Class: ASA Class:: Patient with severe systemic disease Examination indicates no changes. AIRWAY: Airway Visualization of Uvula: Yes Mouth opening greater than 2 fingerbreadths: Yes Neck Full Range of Motion: Yes LUNGS: Lungs clear to auscultation CARDIAC: Regular rhythm,Regular rate Provisional Diagnosis/Treatment Plan: screening for colon cancer - colonoscopy SEDATION GOAL: Moderate This H&P can be found in the attached. SIGNATURE: Israel Saez MD PATIENT NAME: Andrés Steve DATE: March 12, 2022 TIME: 9:53 AM Source Note - Israel Saez MD - 03/12/2022 9:45 AM EST Images from the original note were not included. HISTORY AND PHYSICAL Andrés Steve 1970 REFERRING PHYSICIAN: Leonel Jensen MD CHIEF COMPLAINT: Consult (Colonoscopy) HPI: The patient is a 51 year old male referred for endoscopy. Andrés notes no colon complaints currently. He does report a past history of diverticulitis episodes which were diagnosed clinically and resolved with oral antibiotics-states happened twice over the last 6 years. Patient denies any change in bowel habits, weight changes, blood in stools, black tarry stools or abdominal pain. Denies family history of colon cancer. The patient notes no upper GI complaints. Andrés has not undergone prior endoscopy. Patient's past medical history is significant for atrial fibrillation, GERD which is controlled with famotidine with no breakthrough symptoms per patient, and allergic rhinitis. Patient follows with Dr. Leonel Jensen in primary care for his chronic medical conditions, last office visit note reviewed. He follows with Dr. Gould in cardiology. Patient denies chest pain, shortness of breath or recent hospitalizations. Denies problems with sedation in the past. PAST MEDICAL HISTORY PAST MEDICAL HISTORY Diagnosis Date A-fib (HCC) Allergic rhinitis Esophageal reflux 04/07/2001 PAST SURGICAL HISTORY PAST SURGICAL HISTORY Procedure Laterality Date APPENDECTOMY 2005 Dr. Saez (laparoscopic) EXTRACTION, ERUPTED TOOTH OR EXPOSED ROOT (ELEVATION AND/OR FORCEPS REMOVAL) teens wisdom teeth PAST SURGICAL HISTORY OF 01/09 rt supraclavicluar mass removed (cystic hygroma) PAST SURGICAL HISTORY OF teens cysto/ureteroscopy -- with stone, PAST SURGICAL HISTORY OF endo with polypectomy TONSILLECTOMY PRIMARY/SECONDARY <AGE 10 childhood CURRENT MEDICATIONS Current Outpatient Medications Medication Sig famotidine (ACID RESISTOR INSPECTOR) 10 mg tablet Take 1 tablet by mouth once daily. Increases to 2 daily as needed (Patient taking differently: Take 20 mg by mouth once daily. Increases to 2 daily as needed) dilTIAZem (CARDIZEM) 60 mg tablet Take 60 mg by mouth twice daily. aspirin, enteric coated (ASPIRIN, ENTERIC COATED) 325 mg EC tablet Take 325 mg by mouth once daily. cetirizine (ZYRTEC) 10 mg tablet Take 1 tablet by mouth once daily. (Patient not taking: Reported on 12/03/2021) No current facility-administered medications for this visit. ALLERGIES: Amoxicillin PERSONAL HISTORY: SOCIAL HISTORY Social History Tobacco Use Smoking status: Never Smokeless tobacco: Never Substance Use Topics Alcohol use: Yes Comment: occasional/social Drug use: No FAMILY HISTORY: FAMILY HISTORY FAMILY HISTORY Problem Relation Age of Onset Diabetes Mother type 1, with renal/heart complication GI Mother gallbladder Hypertension Mother Hypertension Father Cancer Father bladder (age 62) -- heavy smoker Coronary Artery Disease Mother REVIEW OF SYMPTOMS: The review of systems data was entered by the nurse and reviewed by me Nursing Notes: Kaylynn Randolph 12/03/2021 8:29 AM Signed REVIEW OF SYSTEMS: General: The patient denies fatigue, denies weight loss, denies weight gain, denies feeling hot, and denies feelings of cold. Eyes: The patient denies glaucoma, denies eye injury/surgery, wears glasses or contacts. Ear/Nose/Throat: The patient NOTES allergies, denies hayfever, denies ear infections, and denies bloody noses. Cardiovascular: The patient denies chest pain, denies heart disease, NOTES A Fib, denies high blood pressure,denies cardiac stent, denies prior heart attack, denies irregular heart beat, denies high cholesterol, denies poor circulation, denies heart failure, other cardiac issues, denies claudication, denies cold feet, denies peripheral arterial stent. Respiratory: The patient denies tuberculosis, denies pneumonia, denies frequent cough, denies pulmonary embolism, denies shortness of breath, and denies coughing up blood. Gastrointestinal: The patient denies difficulty swallowing, NOTES acid reflux, denies ulcers, denies vomiting, denies jaundice/hepatitis, denies gallbladder problems, denies black or tarry stools, denies hemorrhoids, denies bleeding from rectum, denies diverticulitis, denies constipation, denies diarrhea, denies loss of stool control, and denies hernias. Kidney/Bladder: The patient denies kidney stones, denies urine infections, and denies bloody urine. Skin: The patient denies a history of skin cancer, denies bleeding/changing moles, and denies a history of skin rash. Neurologic: The patient denies a history of epilepsy/convulsions, denies headaches, denies head/spinal injuries, and denies stroke/TIA. Psychiatric: The patient denies psychiatric medications, denies depression, and denies voices, denies substance abuse. Endocrine: The patient denies thyroid disorders, denies diabetes, and denies hormonal problems. Hematologic: The patient denies a history of bruising, NOTES bleeding, and denies anemia, denies blood clots. Infections: The patient NOTES a history of measles and mumps, denies rheumatic fever, and denies sexually transmitted diseases. Musculoskeletal: The patient denies back pain/injury, denies back problems, denies sciatica, denies knee/foot trouble, denies arthritis, or denies gout. When was patient's last Mammogram screening? N/A Last Colonoscopy: None Kaylynn Randolph I have confirmed and edited as necessary, the PFSH and ROS obtained by others. Vianney Navarro PA-C PHYSICAL EXAMINATION: General: The patient is 51 year old male, well nourished, well hydrated in no acute distress. The patient is oriented to time, place, and person. VITALS: Blood pressure 149/87, pulse 74, temperature 36.5 C (97.7 F), height 182.9 cm (6'), weight 103.4 kg (228 lb), SpO2 96 %. Body mass index is 30.92 kg/m . HEENT: Normal cephalic, ataumatic, pupils are equally round, sclera are anicteric, mucous membranes are moist, oropharynx is clear. Neck has no masses, asymmetry or lymphadenopathy. Respiratory: Clear to auscultation and percussion. Normal respiratory excursion and pattern. Cardiac: Examination is regular rate and rhythm. Normal S1/S2 Abdominal exam: Soft, nontender, with no palpable masses. No hepatosplenomegaly. No palpable hernias. Extremities: no clubbing, cyanosis or edema. No adenopathy. LABORATORY VALUES: As Noted RADIOLOGIC STUDIES: As Noted Assessment IMPRESSION: encounter for screening colonoscopy PLAN: I have reviewed my findings with the surgeon. Will plan for lower endoscopy. We discussed the risks and benefits of the planned endoscopy. I have informed the patient that complications can occur including failure to complete the endoscopy and perforation. The patient had the opportunity to ask questions concerning the planned endoscopy. My staff has also explained the procedure to the patient in understandable terms and has given the patient printed material concerning the procedure. The patient freely consents to surgery. The patient was offered a surgery/procedure at a [facility] facility. I have counseled the patient regarding the risk of exposure to and/or potential harm posed by the COVID-19 virus with having a surgery/procedure at this time versus the risk of delaying the surgery/procedure. It is not possible to know either the risk of delaying the surgery or procedure or chance of getting an infection with perfect accuracy, but a joint decision was made between the patient and myself to proceed at this time with endoscopy. I plan to use Golytely bowel preparation Diagnoses: (Z12.11) Encounter for screening for malignant neoplasm of colon (primary encounter diagnosis) (Z87.19) History of colonic diverticulitis Consultation requested by Dr. Jensen for an opinion regarding screening colonoscopy. My final recommendations will be communicated back to the requesting physician by way of shared Medical record or letter to requesting physician via US mail. Vianney Navarro PA-C Images from the original note were not included. HISTORY AND PHYSICAL Andrés [employer] 1970 REFERRING PHYSICIAN: Leonel Jensen MD CHIEF COMPLAINT: Consult (Colonoscopy) HPI: The patient is a 51 year old male referred for endoscopy. Andrés notes no colon complaints currently. He does report a past history of diverticulitis episodes which were diagnosed clinically and resolved with oral antibiotics-states happened twice over the last 6 years. Patient denies any change in bowel habits, weight changes, blood in stools, black tarry stools or abdominal pain. Denies family history of colon cancer. The patient notes no upper GI complaints. Andrés has not undergone prior endoscopy. Patient's past medical history is significant for atrial fibrillation, GERD which is controlled with famotidine with no breakthrough symptoms per patient, and allergic rhinitis. Patient follows with Dr. Leonel Jensen in primary care for his chronic medical conditions, last office visit note reviewed. He follows with Dr. Gould in cardiology. Patient denies chest pain, shortness of breath or recent hospitalizations. Denies problems with sedation in the past. PAST MEDICAL HISTORY PAST MEDICAL HISTORY Diagnosis Date A-fib (HCC) Allergic rhinitis Esophageal reflux 04/07/2001 PAST SURGICAL HISTORY PAST SURGICAL HISTORY Procedure Laterality Date APPENDECTOMY 2005 Dr. Saez (laparoscopic) EXTRACTION, ERUPTED TOOTH OR EXPOSED ROOT (ELEVATION AND/OR FORCEPS REMOVAL) teens wisdom teeth PAST SURGICAL HISTORY OF 01/09 rt supraclavicluar mass removed (cystic hygroma) PAST SURGICAL HISTORY OF teens cysto/ureteroscopy -- with stone, PAST SURGICAL HISTORY OF endo with polypectomy TONSILLECTOMY PRIMARY/SECONDARY <AGE 10 childhood CURRENT MEDICATIONS Current Outpatient Medications Medication Sig famotidine (ACID RESISTOR INSPECTOR) 10 mg tablet Take 1 tablet by mouth once daily. Increases to 2 daily as needed (Patient taking differently: Take 20 mg by mouth once daily. Increases to 2 daily as needed) dilTIAZem (CARDIZEM) 60 mg tablet Take 60 mg by mouth twice daily. aspirin, enteric coated (ASPIRIN, ENTERIC COATED) 325 mg EC tablet Take 325 mg by mouth once daily. cetirizine (ZYRTEC) 10 mg tablet Take 1 tablet by mouth once daily. (Patient not taking: Reported on 12/03/2021) No current facility-administered medications for this visit. ALLERGIES: Amoxicillin PERSONAL HISTORY: SOCIAL HISTORY Social History Tobacco Use Smoking status: Never Smokeless tobacco: Never Substance Use Topics Alcohol use: Yes Comment: occasional/social Drug use: No FAMILY HISTORY: FAMILY HISTORY FAMILY HISTORY Problem Relation Age of Onset Diabetes Mother type 1, with renal/heart complication GI Mother gallbladder Hypertension Mother Hypertension Father Cancer Father bladder (age 62) -- heavy smoker Coronary Artery Disease Mother REVIEW OF SYMPTOMS: The review of systems data was entered by the nurse and reviewed by pr Nursing Notes: Kaylynn Agustín 12/03/2021 8:29 AM Signed REVIEW OF SYSTEMS: General: The patient denies fatigue, denies weight loss, denies weight gain, denies feeling hot, and denies feelings of cold. Eyes: The patient denies glaucoma, denies eye injury/surgery, wears glasses or contacts. Ear/Nose/Throat: The patient NOTES allergies, denies hayfever, denies ear infections, and denies bloody noses. Cardiovascular: The patient denies chest pain, denies heart disease, NOTES A Fib, denies high blood pressure,denies cardiac stent, denies prior heart attack, denies irregular heart beat, denies high cholesterol, denies poor circulation, denies heart failure, other cardiac issues, denies claudication, denies cold feet, denies peripheral arterial stent. Respiratory: The patient denies tuberculosis, denies pneumonia, denies frequent cough, denies pulmonary embolism, denies shortness of breath, and denies coughing up blood. Gastrointestinal: The patient denies difficulty swallowing, NOTES acid reflux, denies ulcers, denies vomiting, denies jaundice/hepatitis, denies gallbladder problems, denies black or tarry stools, denies hemorrhoids, denies bleeding from rectum, denies diverticulitis, denies constipation, denies diarrhea, denies loss of stool control, and denies hernias. Kidney/Bladder: The patient denies kidney stones, denies urine infections, and denies bloody urine. Skin: The patient denies a history of skin cancer, denies bleeding/changing moles, and denies a history of skin rash. Neurologic: The patient denies a history of epilepsy/convulsions, denies headaches, denies head/spinal injuries, and denies stroke/TIA. Psychiatric: The patient denies psychiatric medications, denies depression, and denies voices, denies substance abuse. Endocrine: The patient denies thyroid disorders, denies diabetes, and denies hormonal problems. Hematologic: The patient denies a history of bruising, NOTES bleeding, and denies anemia, denies blood clots. Infections: The patient NOTES a history of measles and mumps, denies rheumatic fever, and denies sexually transmitted diseases. Musculoskeletal: The patient denies back pain/injury, denies back problems, denies sciatica, denies knee/foot trouble, denies arthritis, or denies gout. When was patient's last Mammogram screening? N/A Last Colonoscopy: None Kaylynn Randolph I have confirmed and edited as necessary, the PFSH and ROS obtained by others. Vianney Navarro PA-C PHYSICAL EXAMINATION: General: The patient is 51 year old male, well nourished, well hydrated in no acute distress. The patient is oriented to time, place, and person. VITALS: Blood pressure 149/87, pulse 74, temperature 36.5 C (97.7 F), height 182.9 cm (6'), weight 103.4 kg (228 lb), SpO2 96 %. Body mass index is 30.92 kg/m . HEENT: Normal cephalic, ataumatic, pupils are equally round, sclera are anicteric, mucous membranes are moist, oropharynx is clear. Neck has no masses, asymmetry or lymphadenopathy. Respiratory: Clear to auscultation and percussion. Normal respiratory excursion and pattern. Cardiac: Examination is regular rate and rhythm. Normal S1/S2 Abdominal exam: Soft, nontender, with no palpable masses. No hepatosplenomegaly. No palpable hernias. Extremities: no clubbing, cyanosis or edema. No adenopathy. LABORATORY VALUES: As Noted RADIOLOGIC STUDIES: As Noted Assessment IMPRESSION: encounter for screening colonoscopy PLAN: I have reviewed my findings with the surgeon. Will plan for lower endoscopy. We discussed the risks and benefits of the planned endoscopy. I have informed the patient that complications can occur including failure to complete the endoscopy and perforation. The patient had the opportunity to ask questions concerning the planned endoscopy. My staff has also explained the procedure to the patient in understandable terms and has given the patient printed material concerning the procedure. The patient freely consents to surgery. The patient was offered a surgery/procedure at a [facility] facility. I have counseled the patient regarding the risk of exposure to and/or potential harm posed by the COVID-19 virus with having a surgery/procedure at this time versus the risk of delaying the surgery/procedure. It is not possible to know either the risk of delaying the surgery or procedure or chance of getting an infection with perfect accuracy, but a joint decision was made between the patient and myself to proceed at this time with endoscopy. I plan to use Golytely bowel preparation Diagnoses: (Z12.11) Encounter for screening for malignant neoplasm of colon (primary encounter diagnosis) (Z87.19) History of colonic diverticulitis Consultation requested by Dr. Jensen for an opinion regarding screening colonoscopy. My final recommendations will be communicated back to the requesting physician by way of shared Medical record or letter to requesting physician via US mail. Vianney Navarro PA-C documented in this encounter [facility] Progress note 12-03-2021 Note Date & Type Note Facility 12-03-2021 Note HNO ID: [id number] Author: Vianney Navarro PA-C Service: ? Author Type: Physician [employer]ason Supervisor Type: Progress Notes Filed: 12/03/2021 9:07 AM Note Text: HISTORY AND PHYSICAL Andrés Steve 1970 REFERRING PHYSICIAN: Leonel Jensen MD CHIEF COMPLAINT: Consult (Colonoscopy) HPI: The patient is a 51 year old male referred for endoscopy. Andrés notes no colon complaints currently. He does report a past history of diverticulitis episodes which were diagnosed clinically and resolved with oral antibiotics-states happened twice over the last 6 years. Patient denies any change in bowel habits, weight changes, blood in stools, black tarry stools or abdominal pain. Denies family history of colon cancer. The patient notes no upper GI complaints. Andrés has not undergone prior endoscopy. Patient's past medical history is significant for atrial fibrillation, GERD which is controlled with famotidine with no breakthrough symptoms per patient, and allergic rhinitis. Patient follows with Dr. Leonel Jensen in primary care for his chronic medical conditions, last office visit note reviewed. He follows with Dr. Gould in cardiology. Patient denies chest pain, shortness of breath or recent hospitalizations. Denies problems with sedation in the past. PAST MEDICAL HISTORY Diagnosis Date A-fib (HCC) Allergic rhinitis Esophageal reflux 04/07/2001 PAST SURGICAL HISTORY Procedure Laterality Date APPENDECTOMY 2005 Dr. Saez (laparoscopic) EXTRACTION, ERUPTED TOOTH OR EXPOSED ROOT (ELEVATION AND/OR FORCEPS REMOVAL) teens wisdom teeth PAST SURGICAL HISTORY OF 01/09 rt supraclavicluar mass removed (cystic hygroma) PAST SURGICAL HISTORY OF teens cysto/ureteroscopy -- with stone, PAST SURGICAL HISTORY OF endo with polypectomy TONSILLECTOMY PRIMARY/SECONDARY Current Outpatient Medications Medication Sig famotidine (ACID RESISTOR INSPECTOR) 10 mg tablet Take 1 tablet by mouth once daily. Increases to 2 daily as needed (Patient taking differently: Take 20 mg by mouth once daily. Increases to 2 daily as needed) dilTIAZem (CARDIZEM) 60 mg tablet Take 60 mg by mouth twice daily. aspirin, enteric coated (ASPIRIN, ENTERIC COATED) 325 mg EC tablet Take 325 mg by mouth once daily. cetirizine (ZYRTEC) 10 mg tablet Take 1 tablet by mouth once daily. (Patient not taking: Reported on 12/03/2021) No current facility-administered medications for this visit. ALLERGIES: Amoxicillin PERSONAL HISTORY: Social History Tobacco Use Smoking status: Never Smokeless tobacco: Never Substance Use Topics Alcohol use: Yes Comment: occasional/social Drug use: No FAMILY HISTORY: FAMILY HISTORY Problem Relation Age of Onset Diabetes Mother type 1, with renal/heart complication GI Mother gallbladder Hypertension Mother Hypertension Father Cancer Father bladder (age 62) -- heavy smoker Coronary Artery Disease Mother REVIEW OF SYMPTOMS: The review of systems data was entered by the nurse and reviewed by me Nursing Notes: Kaylynn Randolph 12/03/2021 8:29 AM Signed REVIEW OF SYSTEMS: General: The patient denies fatigue, denies weight loss, denies weight gain, denies feeling hot, and denies feelings of cold. Eyes: The patient denies glaucoma, denies eye injury/surgery, wears glasses or contacts. Ear/Nose/Throat: The patient NOTES allergies, denies hayfever, denies ear infections, and denies bloody noses. Cardiovascular: The patient denies chest pain, denies heart disease, NOTES A Fib, denies high blood pressure,denies cardiac stent, denies prior heart attack, denies irregular heart beat, denies high cholesterol, denies poor circulation, denies heart failure, other cardiac issues, denies claudication, denies cold feet, denies peripheral arterial stent. Respiratory: The patient denies tuberculosis, denies pneumonia, denies frequent cough, denies pulmonary embolism, denies shortness of breath, and denies coughing up blood. Gastrointestinal: The patient denies difficulty swallowing, NOTES acid reflux, denies ulcers, denies vomiting, denies jaundice/hepatitis, denies gallbladder problems, denies black or tarry stools, denies hemorrhoids, denies bleeding from rectum, denies diverticulitis, denies constipation, denies diarrhea, denies loss of stool control, and denies hernias. Kidney/Bladder: The patient denies kidney stones, denies urine infections, and denies bloody urine. Skin: The patient denies a history of skin cancer, denies bleeding/changing moles, and denies a history of skin rash. Neurologic: The patient denies a history of epilepsy/convulsions, denies headaches, denies head/spinal injuries, and denies stroke/TIA. Psychiatric: The patient denies psychiatric medications, denies depression, and denies voices, denies substance abuse. Endocrine: The patient denies thyroid disorders, denies diabetes, and denies hormonal problems. Hematologic: The patient denies a hist (more content not included)... [facility] History of Past illness Narrative 08-23-2008 Note Date & Type Note Facility documented as of this encounter (statuses as of 02/09/2023) [facility] Evaluation note Note Date & Type Note Facility documented in this encounter [facility] Reason for referral (narrative) Outpatient Procedure (Routine) - Closed Note Date & Type Note Facility Referral ID Status Reason Start Date Expiration Date V isits Requested Visits Authorized [id number] Closed Auto-Generate d Referral 12/03/2021 12/03/2022 1 1 [facility] Reason for visit Narrative Outpatient Procedure (Routine) - Closed Note Date & Type Note Facility Referral ID Status Reason Start Date Expiration Date V isits Requested Visits Authorized [id number] Closed Auto-Generate d Referral 12/03/2021 12/03/2022 1 1 [facility] Summary Purpose Family History No Family History Records Found Advance Directives No Advanced Directives Records Found Medications Administered Section Inactive Administered Medications - up to 3 most recent administrations Medication Order MAR Action Action Date Dose Rate Site diphenhydrAMINE 12.5-50 mg injection (BENADRYL) 12.5-50 mg, INTRAVENOUS, DIRECTED, Starting on Fri03/12/22 at 1000, Until Fri03/12/22 at 1359, DOSING DIRECTED BY PHYSICIAN FOR PROCEDURAL SEDATION ONLY, Intraprocedure Given by LIP 03/12/2022 10:15 AM EST 50 mg fentaNYL 50 mcg/mL 25-100 mcg injection (SUBLIMAZE) 25-100 mcg, INTRAVENOUS, DIRECTED, Starting on Fri03/12/22 at 1000, Until Fri03/12/22 at 1359, DOSING DIRECTED BY PHYSICIAN FOR PROCEDURAL SEDATION ONLY, Intraprocedure Given by LIP 03/12/2022 10:13 AM EST 50 mcg Additional Source Comments (unrecognized sect ion and content) No Status Records Found INFORMATION SOURCE (unrecogn ized section and content) Source Comments (unrecognize d section and content) In the event this informatio n is protected by the Federal Confidentiality of Alcohol and Drug Abuse Patient Records regulations: The Federal rules restrict any use of the information to criminally investigate or prosecute any alcohol or drug abuse patient.[facility] Care Teams (unrecognized sec tion and content) FOR RECORDS PERTAINING TO PATIENTS WHO ARE OR HAVE BEEN ENROLLED IN A CHEMICAL DEPENDENCY/SUBSTANCEABUSE PROGRAM, SOME INFORMATION MAY BE OMITTED. This clinical summary was aggregated from multiple sources. Caution should be exercised in using it in the provision of clinical care. This summary normalizes information from multiple sources, and as a consequence, information in this document may materially change the coding, format and clinical context of patient data. In addition, data may be omitted in some cases. CLINICAL DECISIONS SHOULD BE BASED ON THE PRIMARY CLINICAL RECORDS. [facility]. provides no warranty or guarantee of the accuracy or completeness of information in this document.
== END | disposition home or self-care (01) ==
LOC: MFPLAB 15:21
PROVIDERS: PCP Family Medicine; Visit Provider Family Medicine
DX: I48.0 Paroxysmal atrial fibrillation (principal)
CPT/HCPCS: 36415; 80053; 85025

== ENCOUNTER → 2024-02-24 | Outpatient (CLI) | payer OTHER, SELFPAY ==
[2024-02-24 18:00] LABS: ALB/GLOB Ratio 1.2 RATIO (0.9-2.4); AST(SGOT) 28 U/L (15-37); Alanine Aminotransfer ALT/SGPT 33 U/L (16-61); Albumin, Serum 3.7 g/dL (3.2-5.0); Alkaline Phosphatase 71 U/L (45-117); Anion Gap 5 (5-15); BUN 18 mg/dL (7-18); BUN/Creat Ratio 19.6 RATIO (10-20); Calcium,Total 8.9 mg/dL (8.5-10.1); Chloride 106 mmol/L (98-107); Creatinine, Serum 0.92 mg/dL (0.70-1.30); EST Glomerular Filtration Rate 91 mL/min (>60); Est Glom Filt Rate - Afr Amer 110 mL/min (>60); Globulin 3.2 g/dL (2.2-4.2); Glucose 100 mg/dL (74-106); Potassium 4.1 mmol/L (3.5-5.1); Protein, Total 6.9 g/dL (6.4-8.2); Sodium Level 139 mmol/L (136-145)
== END | disposition home or self-care (01) ==
LOC: MFPLAB 17:00
PROVIDERS: PCP Family Medicine; Visit Provider Family Medicine
DX: I10 Essential (primary) hypertension (principal)
CPT/HCPCS: 36415; 80053

== ENCOUNTER → 2025-03-11 | Outpatient (CLI) | payer OTHER, SELFPAY ==
--- OUTSIDE RECORDS SUMMARY | 2025-03-11 16:49 | XMS RPT_ITS | CCD ---
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 calculated GFR & GFRAA in patients over 70 years has not been determined. Clinical correlation is essential. Serum or plasma urea nitroge n measurement (mass/volume)Ordered By: Leonel Jensen on 05-27-2023 Urea nitrogen [Mass/Vol] 16 mg/dL 7-18 [facility] Thin prep Papanicolaou smear with manual screeningOrdered By: Leonel Jensen on 05-27-2023 Thin prep Papanicolaou smear with manual screening 3.9 g/dL 3.2-5.0 [facility] Thin prep Papanicolaou smear with manual screening 18 U/L 15-37 [facility] Thin prep Papanicolaou smear with manual screening 8 5-15 [facility] 12 Lead EKG performed by [facility] on 05-07-2023 12 Lead EKG performed by [facility] [address] [place] [address] 12 Lead EKG performed by [facility] 05/07/23828 MR#: [id number] Acct: [id number] Name: SATHYA SANABRIA Rep #: [id number] : 1970 52 From: Jason Foster MD Attending Dr: Dr. Jason Foster MD Status: DE P AMB Ordering Dr: Jason Foster MD Date: 05/07/23 Location: [facility] Sex: M C Admitted: [facility]/12 Lead EKG performed by [facility] ECG Report Interpretation --Sinus Rhythm - frequent ectopic ventricular beat s # VECs = 2BORDERLINE RHYTHMElectronically signed on 05/27/2023 at 10:24 by Stephon Hutchins Software Version [id number] 05/27/23 1026 Date Jason Foster MD CC: Dr. Leonel Jensen MD Date Dictated: 05/07/23828 Date Transcribed: 05/07/23828 Video Engineer: Signed Normal [facility] Cardiology Visit Reporton Cardiology Visit Report [facility] [address] [place] [address] OFFICE VISIT Date of Service: 05/07/23 MR#: [id number] Acct: [id number] Name: SATHYA SANABRIA Rep #: [id number] : 1970 Provider: Dr. Jason agarwal MD Age/Sex: 52/M Location: [facility] Status: Signed HPI HPI History of Present Illness Details: This is a 52-year-old white male who presents today for outpatient cardiovascular follow-up with a history of underlying paroxysmal atrial fibrillation and sinus bradycardia. Patient reports he has been doing very well in his home environment he is aerobically active and has had no recurrence of his paroxysmal atrial fibrillation since January 2017. The patient feels that this is probably related to the fact that he was sick with nausea and vomiting at the time. He was evaluated back in January 2017 with a echo that showed normal LV function and EF of 60% no significant valvular heart disease. There was only mild aortic valve thickening. The patient also had a stress test done in 2017 which was unremarkable. The patient denies any PND orthopnea denies any lower extremity edema he denies any chest pain he really is asymptomatic. He also denies any history of hypertension although there is some mention of it in his office visits when he was here in June 2022 his blood pressure is 158/80 today is 151/86 he reports that this is unusual for him and has not been elevated in his primary care physician's office. The patient is on a very small dose of diltiazem his heart rate is 60 bpm with occasional PVCs in the office today. There are no significant ST or T wave changes there is some poor R wave progression. Intake Vital Signs 06/05/22 13:32 05/07/23 14:55 Height 6 ft 6 ft Weight: 225 lb 5 oz 227 lb BMI 30.5 30.7 BP 158/80 H 157/86 H Blood Pressure Location Lt brachial Lt brachial Position Sitting Sitting Respiration 16 18 Pulse 60 59 L Pulse Source Auscultation Monitor Intake Visit Reasons: 1 Y FU (PREV PFM) Program Director/Music Director Required: No Accompanied by: Self Is patient in pain?: No Allergies amoxicillin Adverse Reaction (Verified 06/05/22 13:33) Diarrhea Medications aspirin 325 mg tablet 325 mg PO DAILY@0800 #30 tabs 01/16/17 [Rx Confirmed 05/07/23] famotidine 40 mg tablet 20 mg PO QDAY 01/14/19 [History Confirmed 05/07/23] fluticasone propionate 50 mcg/actuation nasal spray,suspension (Flonase Allergy Relief) 1 spray intranasal DAILY PRN 04/28/20 [History Confirmed 05/07/23] diltiazem HCl 60 mg capsule,extended release 12 hr 60 mg PO BID #180 caps 07/12/22 [Rx Confirmed 05/07/23] Ejection fraction %: 60 to 64 PFS Medical History Essential hypertension GERD (gastroesophageal reflux disease) Paroxysmal atrial fibrillation Retinal tear of both eyes Sinus bradycardia Surgical History History of bilateral cataract extraction History of shoulder surgery History of tonsillectomy Hx of appendectomy Family History Father Hypertension Bladder cancer Cancer lymphoma Mother Heart disease Diabetes Social History Smoking Status: Never smoker alcohol intake: current alcohol intake frequency: a few times a month Alcohol type: beer and wine substance use type: does not use caffeine: Yes Type: coffee Number of servings: 2 what type of physical activity do you participate in: none seatbelt use: always do you feel safe at home: Yes ROS Const Const: Negative for fatigue or weakness ENT ENT: Negative for dizziness or balance problems Cardio Chest Pain: No Palpitations: No Edema: None Muscle aches with walking: None Resp Respiratory: Negative for SOB with activity, SOB at rest or SOB orthopnea SOB lying down GI GI: Negative nausea, vomiting or heartburn Musc Musc: Negative for muscle weakness or balance problems Neuro Neuro: Negative for dizziness, lightheadedness, near syncope, syncope or weakness Endo Endo: Negative for fatigue Cardiology Exam Const Appearance: cooperative, comfortable and no acute distress Head Head: normal to inspection Eyes General: appearance normal, both eyes and all related structures Neck Neck: no JVD Carotids: Negative bruit Chest Chest inspection: normal inspection of the chest Auscultation: Bilateral: Clear to Auscultation Cardio Rate: regular rate Rhythm: regular rhythm Heart sounds: S1 normal and S2 normal; Negative rub, gallop or murmur GI GI: normal to inspection and bowel sounds present Neuro General: patient oriented x3 Skin Skin: no rashes or lesions noted Extremities Lower Extrem (more content not included)... Normal [facility] Absolute lymphocyte countOrd ered By: Dr. Jensen on 07-09-2022 Lymphocytes Auto (Unsp spec) [#/Vol] 1.40 10*3/uL 0.83-4.51 [facility] Basophil percentageOrdered B y: Dr. Jensen on 07-09-2022 Basophils/100 WBC (Bld) 0.7 % 0-1 [facility] Bilirubin [Mass/Vol] 0.40 mg/dL 0.20-1.00 [facility] Comment on above: For patients on eltr ombopag therapy, use of Dimension Irene TBIL is not recommended. Chloride [Moles/Vol] 106 mmol/L 98-107 [facility] Cholesterol [Mass/Vol] 177 mg/dL <200 [facility] Comment on above: <200 mg/dL Desirable 200-240 mg/dL Borderline >240 mg/dL High Risk Eosinophils/100 WBC (Bld) 2.4 % 0-5 [facility] Glucose [Mass/Vol] 103 mg/dL 74-106 [facility] Comment on above: Fasting Glucose resu lt from 100 to 125 mg/dL suggests IMPAIRED HOMEOSTASIS per A.D.A. criteria. Neutrophils (Bld) [#/Vol] 2.6 10*3/uL 2.0-7.7 [facility] Neutrophils/100 WBC (Bld) 57.7 % 47-70 [facility] Potassium [Moles/Vol] 4.1 mmol/L 3.5-5.1 [facility] Protein [Mass/Vol] 6.7 g/dL 6.4-8.2 [facility] Sodium [Moles/Vol] 139 mmol/L 136-145 [facility] Triglyceride [Mass/Vol] 101 mg/dL <199 [facility] Comment on above: The drugs N-Acetylcy steine and Metamizole may falsely depress this assay.Serum Triglycerides Reference Interval Normal <150 mg/dL Borderline high 150 - 199 mg/dL High 200 - 499 mg/dL Very High > or = 500 mg/dL WBC (Bld) [#/Vol] 4.5 10*3/uL 4.4-11.0 [facility] Blood erythrocytes count (nu mber/volume)Ordered By: Dr. Jensen on 07-09-2022 RBC (Bld) [#/Vol] 5.32 10*6/uL 4.6-6.2 [facility] Blood hemoglobin measurement (mass/volume)Ordered By: Dr. Jensen on 07-09-2022 Hemoglobin (Bld) [Mass/Vol] 15.2 g/dL 13.0-16.5 [facility] Blood lymphocytes/100 leukoc ytesOrdered By: Dr. Jensen on 07-09-2022 Lymphocytes/100 WBC (Bld) 31.0 % 19-41 [facility] Blood monocytes/100 leukocyt esOrdered By: Dr. Jensen on 07-09-2022 Monocytes/100 WBC (Bld) 8.0 % 0-10 [facility] Blood platelet mean volumeOr dered By: Dr. Jensen on 07-09-2022 Platelet mean volume (Bld) [Entitic vol] 9.9 fL 6.2-12.0 [facility] Determination of erythrocyte mean corpuscular volume (MCV)Ordered By: Dr. Jensen on 07-09-2022 MCV (RBC) [Entitic vol] 88.5 fL 80-94 [facility] Hematocrit Auto (Bld) [Volum e fraction]Ordered By: Dr. Jensen on 07-09-2022 Hematocrit (Bld) [Volume fraction] 47.1 % 40-54 [facility] - Chemistry and C hemistry - challengeOrdered By: Dr. Jensen on 07-09-2022 ALP [Catalytic activity/Vol] 63 U/L 45-117 [facility] ALT [Catalytic activity/Vol] 34 U/L 16-61 [facility] CO2 [Moles/Vol] 30.0 mmol/L 21.0-32.0 [facility] Globulin (S) [Mass/Vol] 3.0 g/dL 2.2-4.2 [facility] Urea nitrogen/Creatinine [Mass ratio] 15.4 mg/mg 10-20 [facility] - Hematology and Cell countsOrdered By: Dr. Jensen on 07-09-2022 Erythrocyte distribution width (RBC) [Entitic vol] 40.7 fL 35.1-43.9 [facility] Erythrocyte distribution width (RBC) [Ratio] 12.6 % 11.6-14.6 [facility] Immature granulocytes/100 WBC (Bld) 0.200 % 0.0-0.9 [facility] Comment on above: IG% - Immature Granu locytes (promyelocytes, myelocytes and metamyelocytes) > 1% indicates that a LEFT SHIFT is Present. MCH (RBC) [Entitic mass] 28.6 pg 27.0-32.0 [facility] Nucleated RBC/100 WBC (Bld) [Ratio] 0 % 0-5 [facility] MCHC Auto (RBC) [Mass/Vol]Or dered By: Dr. Jensen on 07-09-2022 MCHC (RBC) [Mass/Vol] 32.3 g/dL 32-36 [facility] No Panel InformationOrdered By: Dr. Jensen on 07-09-2022 Estimated GFR (MDRD) Amer 104 mL/min >60 [facility] Comment on above: GFR Calc Estimated GFR (MDRD) Non-Af Amer 86 mL/min >60 [facility] Comment on above: Non- GFR Calc Thyroid Stimulating Hormone (TSH) 1.45 uIU/mL 0.358-3.74 [facility] Platelets bldOrdered By: Dr. Jensen on 07-09-2022 Platelets (Bld) [#/Vol] 200 10*3/uL 150-450 [facility] Serum or plasma albumin dariel urement (mass/volume)Ordered By: Dr. Jensen on 07-09-2022 Albumin [Mass/Vol] 3.7 g/dL 3.2-5.0 [facility] Serum or plasma albumin/glob ulin mass ratioOrdered By: Dr. Jensen on 07-09-2022 Albumin/Globulin [Mass ratio] 1.2 {ratio} 0.9-2.4 [facility] Serum or plasma calcium dariel urement (mass/volume)Ordered By: Dr. Jensen on 07-09-2022 Calcium [Mass/Vol] 9.0 mg/dL 8.5-10.1 [facility] Serum or plasma cholesterol in HDL measurement (mass/volume)Ordered By: Dr. Jensen on 07-09-2022 Cholesterol in HDL [Mass/Vol] 64 mg/dL >40 [facility] Comment on above: The drugs N-Acetylcy steine and Metamizole may falsely depress this assay. Reference Range HDL <40 mg/dL Low HDL Cholesterol HDL >or= 60 mg/dL High HDL Cholesterol Serum or plasma cholesterol in VLDL measurement (mass/volume)Ordered By: Dr. Jensen on 07-09-2022 Cholesterol in VLDL [Mass/Vol] 20 mg/dL 5-40 [facility] Serum or plasma creatinine m easurement (mass/volume)Ordered By: Dr. Jensen on 07-09-2022 Creatinine [Mass/Vol] 0.97 mg/dL 0.70-1.30 [facility] Comment on above: The validity of the calculated GFR & GFRAA in patients over 70 years has not been determined. Clinical correlation is essential. Serum or plasma low density lipoprotein (LDL) cholesterol measurement (mass/volume)Ordered By: Dr. Jensen on 07-09-2022 Cholesterol in LDL [Mass/Vol] 93 mg/dL 0-130 [facility] Serum or plasma urea nitroge n measurement (mass/volume)Ordered By: Dr. Jensen on 07-09-2022 Urea nitrogen [Mass/Vol] 15 mg/dL 7-18 [facility] Thin prep Papanicolaou smear with manual screeningOrdered By: Dr. Jensen on 07-09-2022 Thin prep Papanicolaou smear with manual screening 18 U/L 15-37 [facility] Thin prep Papanicolaou smear with manual screening 3 5-15 [facility] COLONOSCOPY SCREENINGon 12-0 [facility] Colonoscopyon 03-12-2022 Colonoscopy [facility] Gastrointestinal Endoscopy Patient Name: Sathya Sanabria Procedure Date: 03/12/2022 9:38 AM Date of : 1970 Admit Type: Outpatient Age: 51 Gender: Male Note Status: Finalized Procedure: Colonoscopy Indications: Screening for colorectal malignant neoplasm Providers: Blake Saez MD Patient Profile: This is a 51 year old male. Refer to note in patient chart for documentation of history and physical. Last Colonoscopy: none. The patient's first colonoscopy is today. Referring Physician: Vianney Navarro (pa) (Referring MD), Leonel Jensen (Referring ) Medicines: Midazolam 6 mg IV, Fentanyl 100 micrograms IV, Diphenhydramine 50 mg IV Complications: No immediate complications. Requesting Provider: Procedure: Pre-Anesthesia Assessment: - Prior to the procedure, a History and Physical was performed, and patient medications and allergies were reviewed. The patient is competent. The risks and benefits of the procedure and the sedation options and risks were discussed with the patient. All questions were answered and informed consent was obtained. Patient identification and proposed procedure were verified by the physician and the nurse in the procedure room. Respiratory Examination: clear to auscultation. CV Examination: normal. Prophylactic Antibiotics: The patient does not require prophylactic antibiotics. Prior Anticoagulants: The patient has taken no anticoagulant or antiplatelet agents. ASA Grade Assessment: II - A patient with mild systemic disease. After reviewing the risks and benefits, the patient was deemed in satisfactory condition to undergo the procedure. The anesthesia plan was to use moderate sedation / analgesia (conscious sedation). Immediately prior to administration of medications, the patient was re-assessed for adequacy to receive sedatives. The heart rate, respiratory rate, oxygen saturations, blood pressure, adequacy of pulmonary ventilation, and response to care were monitored throughout the procedure. The physical status of the patient was re-assessed after the procedure. After I obtained informed consent, the scope was passed under direct vision. Throughout the procedure, the patient's blood pressure, pulse, and oxygen saturations were monitored continuously. The Colonoscope was introduced through the anus and advanced to the cecum, identified by the appendiceal orifice, ileocecal valve and palpation. The colonoscopy was performed without difficulty. The patient tolerated the procedure well. The quality of the bowel preparation was good. The ileocecal valve, appendiceal orifice, and rectum were photographed. Moderate Sedation: Moderate (conscious) sedation was personally administered by the endoscopist. The following parameters were monitored: oxygen saturation, heart rate, blood pressure, and response to care. Total physician intraservice time was 19 minutes. The administration of moderate sedation was initiated at 10:11 AM. Findings: The perianal and digital rectal examinations were normal. Multiple medium-mouthed diverticula were found in the sigmoid colon. The exam was otherwise without abnormality on direct and retroflexion views. Impression: - Diverticulosis in the sigmoid colon. - The examination was otherwise normal on direct and retroflexion views. - No specimens collected. Recommendation: - Discharge patient to home. - Resume previous diet. - Continue present medications. - Repeat colonoscopy in 10 years for screening purposes. - Resume anticoagulant at prior dose. - Patient has a contact number available for emergencies. The signs and symptoms of potential delayed complications were discussed with the patient. Return to normal activities tomorrow. Written discharge instructions were provided to the patient. Procedure Code(s): --- Professional --- 52576, Colonoscopy, flexible; diagnostic, including collection of specimen(s) by brushing or washing, when performed (separate procedure) G0500, Moderate sedation services provided by the same physician or other qualified health health care law specialist performing a gastrointestinal endoscopic service that sedation supports, requiring the presence of an independent trained observer to assist in the monitoring of the patient's level of consciousness and physiological status; initial 15 minutes of intra-service time; patient age 5 years or older (additional time may be reported with 82915, as appropriate) CPT copyright 2020 [employer]. All rights reserved. The codes documented in this report are preliminary and upon conference service coordinator review may be revised to meet current compliance requirements. Attending Participation: I was present and participated during the entire procedure, including non-lorenzana portions, and during the administration and monitoring of Moderate Sedation. Scope In: 10:17 (more content not included)... [facility] HISTORY PHYSICALon 2 HISTORY PHYSICAL HNO ID: [id number] Author: Blake Saze MD Service: General Surgery Author Type: Physician Type: HANDP Filed: 03/12/2022 9:50 AM Note Text: HISTORY AND PHYSICAL Sathya Sanabria 1970 REFERRING PHYSICIAN: Leonel Jensen MD CHIEF COMPLAINT: Consult (Colonoscopy) HPI: The patient is a 51 year old male referred for endoscopy. Sathya notes no colon complaints currently. He does report a past history of diverticulitis episodes which were diagnosed clinically and resolved with oral antibiotics-states happened twice over the last 6 years. Patient denies any change in bowel habits, weight changes, blood in stools, black tarry stools or abdominal pain. Denies family history of colon cancer. The patient notes no upper GI complaints. Sathya has not undergone prior endoscopy. Patient's past [...] HISTORY OF endo with polypectomy TONSILLECTOMY PRIMARY/SECONDARY CURRENT MEDICATIONS Current Outpatient Medications Medication Sig famotidine (ACID FLOOR LAYER) 10 mg tablet Take 1 tablet by [...] entered by the nurse and reviewed by wa Nursing Notes: Kaylynn Randolph 12/03/2021 8:29 AM [...] denies substance abuse. Endocrine: The patient denies thyroi (more content not included)... [facility] NURSING PROGon 03-12-2022 NURSING PROG HNO ID: [id number] Author: Emmie Yousif RN Service: ? Author Type: Registered Nurse Type: Nursing Progress Note Filed: 03/12/2022 10:50 AM Note Text: Patient arrived laying on left side. States that he is not in any pain at this time. Patient passing gas. Patient's abdomen appears to soft and nondistended at this time. [facility] CNOVon 12-03-2021 CNOV Office Visit ([facility]ENS[facility] ) -------- SATHYA SANABRIA ([id number]) 1970 M Date Time Provider Department 12/03/21 8:30 AM VIANNEY NAVARRO [facility] During your visit today, we recorded the following information about you: Temperature Pulse Blood pressure Weight 97.7 degrees 74/minute 149/87 103.4 kg Height 1.829 m Kaylynn Randolph 12/03/2021 8:29 AM Signed REVIEW [...] Mammogram screening? N/A Last Colonoscopy: None Kaylynn Navarro PA-C 12/03/2021 9:07 AM Signed HISTORY AND PHYSICAL Sathya Sanabria 1970 REFERRING PHYSICIAN: Leonel Jensen MD CHIEF COMPLAINT: Consult (Colonoscopy) HPI: The patient is a 51 year old male referred for endoscopy. Sathya notes no colon complaints currently. He does report a past history of diverticulitis episodes which were diagnosed clinically and resolved with oral antibiotics-states happened twice over the last 6 years. Patient denies any change in bowel habits, weight changes, blood in stools, black tarry stools or abdominal pain. Denies family history of colon cancer. The patient notes no upper GI complaints. Sathya has not undergone prior endoscopy. Patient's past [...] Current Outpatient Medications Medication Sig famotidine (ACID FLOOR LAYER) 10 mg tablet Take 1 tablet by [...] (ZYRTEC) 10 mg tablet Take 1 tablet b (more content not included)... [facility] Vital Signs Date Time Vital Sign Value Performing Clinician Jennifer whittaker 05-07-2023 14:55-0500 Body height 182.[address] Leonel Jensen Work Phone: [facility] 05-07-2023 14:55-0500 Body mass index (BMI) [Ratio] 30.7 kg/m2 Dr. Leonel Jensen Work Phone: [facility] 05-07-2023 14:55-0500 Body weight 102.[address] Leonel Jensen Work Phone: [facility] 05-07-2023 14:55-0500 Diastolic blood pressure 86 mm[Hg] Dr. Leonel Jensen Work Phone: 0(183)798-930420 [place] [address] 05-07-2023 14:55-0500 Heart rate 59 /min Dr. Leonel Jensen Work Phone: 1(211)318-239020 [place] [address] 05-07-2023 14:55-0500 Respiratory rate 18 /min Dr. Leonel Jensen Work Phone: 3(888)313-968620 [place] [address] 05-07-2023 14:55-0500 Systolic blood pressure 157 mm[Hg] Dr. Leonel Jensen Work Phone: 7(934)784-492020 [place] [address] 06-05-2022 13:32-0500 Body height 182.[address] Leonel Jensen Work Phone: 9(827)[phone] [address] 06-05-2022 13:32-0500 Body mass index (BMI) [Ratio] 30.5 kg/m2 Dr. Leonel Jensen Work Phone: 4(354)665-917920 [place] [address] 06-05-2022 13:32-0500 Body weight 102.[address] Leonel Jensen Work Phone: 8(466)146-679520 [place] [address] 06-05-2022 13:32-0500 Diastolic blood pressure 80 mm[Hg] Dr. Leonel Jensen Work Phone: 3(252)162-727320 [place] [address] 06-05-2022 13:32-0500 Heart rate 60 /min Dr. Leonel Jensen Work Phone: 4(092)113-541020 [place] [address] 06-05-2022 13:32-0500 Respiratory rate 16 /min Dr. Leonel Jensen Work Phone: 3(962)685-908620 [place] [address] 06-05-2022 13:32-0500 Systolic blood pressure 158 mm[Hg] Dr. Leonel Jensen Work Phone: 8(944)085-945420 [place] [address] 03-12-2022 11:06-0500 Diastolic blood pressure 78 mm[Hg] Blake Saez MD Work Phone: [facility] 03-12-2022 11:06-0500 Heart rate 73 /min Blake Saez MD Work Phone: [facility] 03-12-2022 11:06-0500 Respiratory rate 16 /min Blake Saez MD Work Phone: [facility] 03-12-2022 11:06-0500 SaO2% (BldA) [Mass fraction] 100 % Blake Saez MD Work Phone: [facility] 03-12-2022 11:06-0500 Systolic blood pressure 137 mm[Hg] Blake Saez MD Work Phone: [facility] 03-12-2022 09:46-0500 Body temperature 97.7 [degF] Blake Saez MD Work Phone: [facility] Encounters Encounter Date Encounter Type Care Provider Facility Start: 02-24-2024 End: 02-24-2024 ambulatory Leonel Jensen Facility:[facility] Start: 05-27-2023 End: 05-27-[address] Leonel Jensen Work Phone: [facility] Work Phone: Start: 05-27-2023 End: 05-27-[address] Leonel Jensen Work Phone: [facility] Start: 05-27-2023 End: 05-27-2023 ambulatory Leonel Jensen Facility:[facility] Start: 05-07-2023 End: 05-07-[address] Leonel Jensen Work Phone: [facility] Work Phone: Start: 05-07-2023 End: 05-07-2023 ambulatory Jason Foster Facility:[facility] Start: 07-09-2022 End: 07-09-[address] Leonel Jensen Work Phone: [facility] Work Phone: Start: 07-09-2022 End: 07-09-[address] Leonel Jensen Work Phone: [facility] Start: 06-05-2022 End: 06-05-[address] Leonel Jensen Work Phone: [facility] Start: 03-12-2022 End: 03-12-2022 ambulatory BLAKE SAEZ Facility:[facility] Start: 03-12-2022 End: 03-12-2022 Subsequent hospital visit by physician Blake Saez MD Work Phone: Ambulatory Surgery Comment on above: Screening for colon cancer [Z12.11] Start: 12-03-2021 End: 12-03-2021 ambulatory LEONEL JENSEN Facility:[facility] Procedures Date Procedure Procedure Detail Performing Clinician Start: 03-12-2022 Colonoscopy flx dx w /collj spec when pfrmd Vianney Navarro PA-C Work Phone: Start: 03-12-2022 Colonoscopy Blake johnson MD Work Phone: Start: 08-23-2008 Lipid 1996 panel - S mina or Plasma Blake Saez MD Work Phone: Plan of Treatment Date Care Activity Detail Author Start: 03-12-2032 Colonoscopy Colonoscopy [facility] Start: 03-12-2032 Colorectal Cancer Screening Colorectal Cancer Screening [facility] Start: 12-06-2022 Covid-19 Vaccine ( season) Covid-19 Vaccine ( season) [facility] Start: 12-06-2022 Influenza vaccination Influenza Vacc ine (#1) [facility] Start: 04-07-2022 Depression Assessment Depression Ass essment [facility] Start: 04-04-2022 Shingrix Vaccine (2 of 2) Shingrix V accine (2 of 2) [facility] Start: 01-29-2017 Urine microalbumin profile DTa P,Tdap,Td Vaccine (2 - Td or Tdap) [facility] Start: 2013 Cologuard (FIT-DNA) Cologuard (FIT-D NA) [facility] Start: [address] Colonography [facility] Start: 2013 Diabetes Screening Diabetes Screenin g [facility] Start: 2013 Fecal Occult Blood Fecal Occult Bloo d [facility] Start: 2013 Sigmoidoscopy Sigmoidoscopy [facility] Start: 08-23-2013 Lipid 1996 panel - S mina or Plasma Lipid Screening [facility] Start: 1986 Hepatitis C Screening Hepatitis C Sc reening [facility] Start: 1986 HIV Screening HIV Screening [facility] Start: 1968 Hepatitis B Vaccine (1 of 3 - 3-dose series) Hepatitis B Vaccine (1 of 3 - 3-dose series) [facility] Immunizations Immunization Date Immunization Notes Care Provider [facility] 02-07-2022 influenza virus vaccine, unspecified formulation Blake Saez MD Work Phone: [facility] 01-30-2019 influenza, injectabl e, quadrivalent, contains preservative Blake Saez MD Work Phone: [facility] 01-17-2018 influenza, injectabl e, quadrivalent, contains preservative Blake Saez MD Work Phone: [facility] 01-16-2017 influenza, injectabl e, quadrivalent, preservative free Dr. Leonel Jensen Work Phone: [facility] 01-16-2017 influenza, seasonal, injectable Dr. Leonel Jensen Work Phone: [facility] 01-27-2016 influenza, injectabl e, quadrivalent, contains preservative Blake Saez MD Work Phone: [facility] 02-18-2015 influenza, injectabl e, quadrivalent, contains preservative Blake Saez MD Work Phone: [facility] 02-24-2014 influenza, seasonal, injectable Blake Saez MD Work Phone: [facility] 02-20-2013 influenza virus vaccine, unspecified formulation Blake Saez MD Work Phone: [facility] Work Phone: 01-15-2012 influenza virus vaccine, unspecified formulation Blake Saez MD Work Phone: [facility] Work Phone: 01-23-2011 influenza virus vaccine, unspecified formulation Blake Saez MD Work Phone: [facility] 01-29-2007 tetanus toxoid, redu rocky diphtheria toxoid, and acellular pertussis vaccine, adsorbed Blake Saez MD Work Phone: [facility] Work Phone: Payers Date Payer Category Payer Self-pay [id number] 2020 Private Health Insurance EMILEE MORALES OAP [id number] 2020-Present [phone] [facility] [id number] [place] [address] Open Access [id number] 2013 Private Health Insurance [id number] Unknown [id number] Unknown [id number] Unknown [id number] Social History Date Type Detail Facility Start: 06-05-2022 End: 05-07-2023 Tobacco smoking status NHIS Unknown if ever smoked [facility] Start: 01-19-2017 Occasional [facility] Start: 01-16-2017 None [facility] Start: 01-16-2017 Spouse/ Signif icant Other [facility] Start: 01-19-2017 Non-smoker [facility] Start: 1970 Sex Assigned At Male W [facility] Tobacco smoking status NHIS Never smoked tobacco [facility] Start: 03-12-2022 Alcohol intake Current drinke r of alcohol (finding) [facility] Start: 03-12-2022 History of Social function [facility] Start: 03-12-2022 Tobacco use panel [facility] Start: 08-23-2008 Alcohol Comment occasional/social Cl [facility] Start: 1970 Sex Assigned At Not on file C [facility] Nurse Note 03-12-2022 Emmie Yousif RN - 03/12/2022 10:36 AM EST Note Date & Type Note Facility 03-12-2022 Nurse Note Patient arrived laying on left side. States that he is not in any pain at this time. Patient passing gas. Patient's abdomen appears to soft and nondistended at this time. documented in this encounter [facility] History and physical note 03-12-2022 Blake Saez MD - 03/12/2022 9:45 AM ESTBlake Saez MD - 03/12/2022 9:45 AM EST [...] can be found in the attached. SIGNATURE: Blake Saez MD PATIENT NAME: Sathya Sanabria DATE: March 12, 2022 TIME: 9:53 AM Source Note - Blake Saez MD - 03/12/2022 9:45 AM EST Images from the original note were not included. HISTORY AND PHYSICAL Sathya Sanabria 1970 REFERRING PHYSICIAN: Leonel Jensen MD CHIEF COMPLAINT: Consult (Colonoscopy) HPI: The patient is a 51 year old male referred for endoscopy. Sathya notes no colon complaints currently. He does report a past history of diverticulitis episodes which were diagnosed clinically and resolved with oral antibiotics-states happened twice over the last 6 years. Patient denies any change in bowel habits, weight changes, blood in stools, black tarry stools or abdominal pain. Denies family history of colon cancer. The patient notes no upper GI complaints. Sathya has not undergone prior endoscopy. Patient's past [...] Current Outpatient Medications Medication Sig famotidine (ACID FLOOR LAYER) 10 mg tablet Take 1 tablet by [...] entered by the nurse and reviewed by wa Nursing Notes: Kaylynn Randolph 12/03/2021 8:29 AM [...] patient was offered a surgery/procedure at a [facility] facility. I have counseled the patient regarding [...] note were not included. HISTORY AND PHYSICAL Sathya [employer] 1970 REFERRING PHYSICIAN: Leonel Jensen MD CHIEF COMPLAINT: Consult (Colonoscopy) HPI: The patient is a 51 year old male referred for endoscopy. Sathya notes no colon complaints currently. He does report a past history of diverticulitis episodes which were diagnosed clinically and resolved with oral antibiotics-states happened twice over the last 6 years. Patient denies any change in bowel habits, weight changes, blood in stools, black tarry stools or abdominal pain. Denies family history of colon cancer. The patient notes no upper GI complaints. Sathya has not undergone prior endoscopy. Patient's past [...] Current Outpatient Medications Medication Sig famotidine (ACID FLOOR LAYER) 10 mg tablet Take 1 tablet by [...] entered by the nurse and reviewed by wa Nursing Notes: Kaylynn Randolph 12/03/2021 8:29 AM [...] patient was offered a surgery/procedure at a [facility] facility. I have counseled the patient regarding [...] Vianney Navarro PA-C documented in this encounter [facility] Progress note 12-03-2021 Note Date & Type Note Facility 12-03-2021 Note HNO ID: [id number] Author: Vianney Navarro PA-C Service: ? Author Type: Physician Administrative Personal Assistant Type: Progress Notes Filed: 12/03/2021 9:07 AM Note Text: HISTORY AND PHYSICAL Sathya Sanabria 1970 REFERRING PHYSICIAN: Leonel Jensen MD CHIEF COMPLAINT: Consult (Colonoscopy) HPI: The patient is a 51 year old male referred for endoscopy. Sathya notes no colon complaints currently. He does report a past history of diverticulitis episodes which were diagnosed clinically and resolved with oral antibiotics-states happened twice over the last 6 years. Patient denies any change in bowel habits, weight changes, blood in stools, black tarry stools or abdominal pain. Denies family history of colon cancer. The patient notes no upper GI complaints. Sathya has not undergone prior endoscopy. Patient's past [...] Current Outpatient Medications Medication Sig famotidine (ACID FLOOR LAYER) 10 mg tablet Take 1 tablet by [...] entered by the nurse and reviewed by wa Nursing Notes: Kaylynn Randolph 12/03/2021 8:29 AM [...] denies a hist (more content not included)... [facility] History of Past illness Narrative 08-23-2008 Note Date & Type Note Facility 08-23-2008 History of Past i llness Narrative Problem Noted Date Diagnosed Date Resolved Date Calculus of kidney 08/23/2008 9 Overview: Teenager, passed spontaneously, no recurrence documented as of this encounter (statuses as of 02/09/2023) [facility] Evaluation note Note Date & Type Note Facility Evaluation note Diagnosis Onset Date Symptomatic PVCs acute Essential hypertension chron ic Paroxysmal atrial fibrillation chronic Sinus bradycardia [facility] Work Phone: Evaluation note Note Date & Type Note Facility Evaluation note Diagnosis Family history of diabetes mellitus- Primary Special screening for malignant neoplasms, colon Screening for colon cancer Special screening for malignant neoplasms, colon documented in this encounter [facility] Evaluation note Note Date & Type Note Facility Evaluation note Diagnosis Onset Date Essential hypertension chron ic Paroxysmal atrial fibrillation chronic Sinus bradycardia [facility] Work Phone: Reason for referral (narrative) Outpatient Procedure (Routine) - Closed Note Date & Type Note Facility Reason for referral (narrati ve) Specialty Diagnoses / Procedures Referred By Simba nicole Referred To Contact [facility] Diagnoses Screening for colon cancer Procedures COLONOSCOPY SCREENING COLONOSCOPY FLX DX W/COLLJ SPEC WHEN PFRMD Vianney Navarro PA-C [address] [place], [place] [address]jerem[place] [address] [facility] [address] [place] [address] Referral ID Status Reason Start Date Expiration Date V isits Requested Visits Authorized [id number] Closed Auto-Generate d Referral 12/03/2021 12/03/2022 1 1 [facility] Reason for visit Narrative Outpatient Procedure (Routine) - Closed Note Date & Type Note Facility Reason for visit Narrative Specialty Diagnoses / Procedures Referred By Contac t Referred To Contact [facility] Diagnoses Screening for colon cancer Procedures COLONOSCOPY SCREENING COLONOSCOPY FLX DX W/COLLJ SPEC WHEN PFRMD Vianney Navarro PA-C [address] [place] [address] [facility] [address] [place] [address] Referral ID Status Reason Start Date Expiration Date V isits Requested Visits Authorized [id number] Closed Auto-Generate d Referral 12/03/2021 12/03/2022 1 1 [facility] Summary Purpose Family History No Family History Records Found Relationship Condition Age at Onset Recorded Date/T kateryna father Hypertension Unknown Malignant neoplasm of urinary bladder Unk nown Malignant neoplasm Unknown mother Cardiac disease Unknown Diabetes mellitus Unknown Advance Directives No Advanced Directives Records Found Advance Directive Response Recorded Date/ Time Living Will Yes April 13 0 9:08am Power of Border Measurer Yes April 13 9:08am Advance Directive Response Recorded Date/ Time Living Will Yes April 13 0 8:08am Power of Border Measurer Yes April 13 8:08am Chief Complaint and Reason for Visit Chief Complaint 1 y fu Reason for Visit Symptomatic PVCs Essential hypertension Paroxysmal atrial fibrillation Sinus bradycardia Chief Complaint 1 Y FU (PREV PFM) Reason for Visit Essential hypertensi on Paroxysmal atrial fibrillation Sinus bradycardia Medications Administered Section Inactive Administered Medications - [...] LIP 03/12/2022 10:13 AM EST 50 mcg Given by LIP 03/12/2022 10:11 AM EST 50 mcg lactated ringers iv infusion 30 mL/hr, INTRAVENOUS, CONTINUOUS, Starting on Fri03/12/22 at 0930, Until Fri03/12/22 at 1044, Preprocedure New Bag/Syringe/Bottle 03/12/2022 9:38 AM EST 30 mL/hr 30 mL/hr midazolam (PF) 1-5 mg injection (VERSED) 1-5 mg, INTRAVENOUS, DIRECTED, Starting on Fri03/12/22 at 1000, Until Fri03/12/22 at 1359, DOSING DIRECTED BY PHYSICIAN FOR PROCEDURAL SEDATION ONLY, Intraprocedure Given 03/12/2022 10:23 AM EST 1 mg Given by LIP 03/12/2022 10:13 AM EST 2 mg Given by LIP 03/12/2022 10:11 AM EST 3 mg Additional Source Comments (unrecognized sect ion and content) No Status Records FoundNo Status Records Found INFORMATION SOURCE (unrecogn ized section and content) DATE CREATED AUTHOR 03/12/2022 [facility] DATE CREATED AUTHOR AUTHOR'S ORGANIZ ATION 03/26/2024 [facility] Care Teams (unrecognized sec tion and content) Team Status: Active Member Role Status Dates Dr. Leonel Jensen MD Family Provider Active Dr. Leonel Jensen MD Primary Care Provider Active Team Status: Inactive Member Role Status Dates Dr. Leonel Jensen MD Primary Care Provider, Referring P nora Active Dr. Zhang Gould MD Attending Provider Active Team Status: Inactive Member Role Status Dates Dr. Leonel Jensen MD Primary Care Provide r, Attending Provider, Referring Provider Active Pension Adviser Relationship Specialty Start Date End Date Leonel Jensen MD [address] [place] [id number] PCP - General Family Medicine 11/21/21 Team Status: Inactive Member Role Status Dates Dr. Leonel Jensen MD Primary Care Provider, Referring P nora Active Dr. Jason Foster MD Attending Provider Active Team Status: Inactive Member Role Status Dates Dr. Leonel Jensen MD Primary Care Provider, Attending P nora Active Goals (unrecognized section and content) Goals may be documented in a n alternate sectionGoals may be documented in an alternate section Source Comments (unrecognize d section and content) In the event this informatio n is protected by the Federal Confidentiality of Alcohol and Drug Abuse Patient Records regulations: The Federal rules restrict any use of the information to criminally investigate or prosecute any alcohol or drug abuse patient.[facility] FOR RECORDS PERTAINING TO PATIENTS WHO ARE [...] BE BASED ON THE PRIMARY CLINICAL RECORDS. [facility]. provides no warranty or guarantee of the accuracy or completeness of information in this document.
[2025-03-11 17:54] LABS: Hematocrit 45.9 % (40-54); Hemoglobin 15.0 g/dL (13.0-16.5); Immature Granulocytes Count 0.000 X10^3/uL (0.0-0.0); Mean Corp Hgb Conc 32.7 g/dL (32-36); Mean Corpuscular Volume 87.8 fL (80-94); Mean Platelet Vol. 9.7 fl (6.2-12.0); NRBC Flagged by Analyzer 0 % (0-5); Platelet Count 201 K/mm3 (150-450); RBC Distribution Width CV 12.7 % (11.6-14.6); RBC Distribution Width SD 41.1 fl (35.1-43.9); Red Blood Count 5.23 M/mm3 (4.6-6.2); White Blood Count 5.9 K/mm3 (4.4-11.0)
[2025-03-11 17:59] LABS: Creatinine, Urine (random) 91.10 mg/dL (39.00-259.00); Microalbumin,Random Urine 13.0 mg/L (<20 mg/L)
[2025-03-11 18:06] LABS: AST(SGOT) 21 U/L (<=37); Alanine Aminotransfer ALT/SGPT 29 U/L (<=46); Albumin, Serum 4.3 g/dL (3.5-5.0); Alkaline Phosphatase 60 U/L (40-129); Anion Gap 10 (5-15); BUN 17 mg/dL (4-19); BUN/Creat Ratio 16.6 RATIO (10-20); Calcium,Total 9.5 mg/dL (7.6-11.0); Carbon Dioxide 27.0 mmol/L (21.0-32.0); Chloride 102 mmol/L (98-108); Globulin 2.6 g/dL (2.2-4.2); Glucose 104 mg/dL (70-99); Potassium 4.7 mmol/L (3.3-5.1)
== END | disposition home or self-care (01) ==
LOC: MFPLAB 16:29
PROVIDERS: PCP Family Medicine; Visit Provider Family Medicine
DX: I10 Essential (primary) hypertension (principal); I48.0 Paroxysmal atrial fibrillation
CPT/HCPCS: 36415; 80053; 82043; 82570; 84443; 85025